=== PATIENT | female | born 1990 | race African-American/Black ===

== ENCOUNTER 2016-08-07 09:10 | Emergency (ER) | payer MEDICAID ==
[~2016-08-07] VITALS: Ht 157.5 cm; Wt 55.0 kg
[2016-08-07] MEDS ORDERED: KETOROLAC 60MG/2ML VIAL IM ONE (10:15)
[2016-08-07] MEDS ORDERED: ONDANSETRON 4MG ODT PO ONE (10:15)
[2016-08-07 10:24] LABS: MEAN CORPUSCULAR HEMOGLOBIN 26.4 pg (28.0-32.0); MEAN CORPUSCULAR HGB CONC 33.3 g/dL (31.0-37.0); MEAN CORPUSCULAR VOLUME 79.1 fL (81.0-99.0); PLATELET 427 x1000/uL (130-400); RED BLOOD CELL COUNT 4.55 mill/uL (4.2-5.4); RED CELL DISTRIBUTION WIDTH 14.6 % (11.6-14.6); WHITE BLOOD COUNT 7.3 x1000/uL (4.5-11.0)
[2016-08-07 10:30] LABS: CHLORIDE 102 mEq/L (98-107); INDEX HEMOLYSI 1 (1-3); INDEX ICTERIC 1 (1-4); INDEX LIPEMIC 1 (1-3)
[2016-08-07 10:39] LABS: ALANINE AMINOTRANSFERASE 24 IU/L (13-61); ALBUMIN 4.1 g/dL (3.4-5.0); ANION GAP 16; CALCIUM 9.3 mg/dL (8.5-10.1); CARBON DIOXIDE 26 mEq/L (21-32); UREA NITROGEN BLOOD 10 mg/dL (7-21); eGFR > 60 mL/min (>60)
[2016-08-07] MEDS ORDERED: LORAZEPAM 2MG/ML CPJ ONE (10:48)
[2016-08-07 10:53] LABS: CLARITY URINE CLOUDY (CLEAR); COLOR URINE YELLOW (YELLOW); GLUCOSE URINE NEGATIVE (NEGATIVE); KETONES URINE NEGATIVE (NEGATIVE); LEUKOCYTE ESTERASE URINE 3+ (NEGATIVE); NITRITE URINE NEGATIVE (NEGATIVE); OCCULT BLOOD URINE NEGATIVE (NEGATIVE); PH URINE >=9.0 (4.5-8.0); PROTEIN URINE 1+ (NEGATIVE); SPECIFIC GRAVITY URINE 1.014 (1.005-1.030); UROBILINOGEN URINE 0.2 E.U./dL (0.2-1.0)
[2016-08-07 11:13] LABS: SQUAMOUS EPITHELIAL CELL URINE 3+ /lpf (RARE/1+); WBC URINE 25-50 /hpf (0-2)
[2016-08-07 11:16] LABS: BACTERIA URINE 3+
[2016-08-07] MEDS ORDERED: LORAZEPAM 2MG/ML CPJ IM ONE (11:45)
[2016-08-07] MEDS ORDERED: VISCOUS LIDOCAINE 2% 15 ML UDC MM PRN (12:00)
[2016-08-07] MEDS ORDERED: MAGNESIUM/ALUMINUM HYDROXIDE/SIMETHICONE 30ML UDC PO ONE (12:00)
[2016-08-07] MEDS ORDERED: PHENOBARBITAL ELIXIR 30 MG/7.5ML UDC PO ONE (12:15)
[2016-08-07] MEDS ORDERED: MORPHINE SULFATE 2 MG/ML CPJ (NOT FOR IM USE) SQ ONE (13:00)
[2016-08-07] MEDS ORDERED: METOCLOPRAMIDE HCL 10MG/2ML VIAL IM ONE (13:00)
[2016-08-07 14:58] VITALS: BP 128/78
== END 2016-08-07 15:11 | disposition home or self-care (01) ==
LOC: ER 09:19
DX: N39.0 Urinary tract infection, site not specified (principal); F12.10 Cannabis abuse, uncomplicated; Z87.442 Personal history of urinary calculi; Z90.49 Acquired absence of other specified parts of digestive tract; Z88.6 Allergy status to analgesic agent
CPT/HCPCS: 36415; 80053; 81001; 81025; 85027; 96372; 99284; J1885; J2060; J2765; Q0162; Z7610

== ENCOUNTER 2016-12-28 12:34 | Emergency (ER) | payer MEDICAID ==
[~2016-12-28] VITALS: Ht 157.5 cm; Wt 70.0 kg
[~2016-12-28 12:34] MED LIST: COR6 PO; GUAI600T PO; LOSA50TA3 PO
[2016-12-28] MEDS ORDERED: SODIUM CHLORIDE 0.9% 1,000 ML IV ONE (14:14)
[2016-12-28] MEDS ORDERED: KETOROLAC 30MG/ML VIAL IV STA (14:14)
[2016-12-28] MEDS ORDERED: ONDANSETRON HCL 4MG/2ML VIAL IV STA (14:14)
[2016-12-28] MEDS ORDERED: FAMOTIDINE 20MG/2ML VIAL IV ONE (14:15)
[2016-12-28] MEDS ORDERED: IPRATROPIUM/ALBUTEROL 0.5-3(2.5)MG/3ML NEB HHN ONE (14:30)
[2016-12-28 14:34] LABS: GLUCOSE URINE NEGATIVE (NEGATIVE); KETONES URINE NEGATIVE (NEGATIVE); LEUKOCYTE ESTERASE URINE 3+ (NEGATIVE); NITRITE URINE NEGATIVE (NEGATIVE); OCCULT BLOOD URINE NEGATIVE (NEGATIVE); PH URINE 5.5 (4.5-8.0); PROTEIN URINE NEGATIVE (NEGATIVE); SPECIFIC GRAVITY URINE 1.018 (1.005-1.030); UROBILINOGEN URINE 0.2 E.U./dL (0.2-1.0)
[2016-12-28 14:44] LABS: CLARITY URINE HAZY (CLEAR); COLOR URINE YELLOW (YELLOW)
[2016-12-28] MEDS ORDERED: ONDANSETRON 4MG ODT PO ONE (14:45)
[2016-12-28] MEDS ORDERED: KETOROLAC 30MG/ML VIAL IM ONE (14:45)
[2016-12-28 14:49] LABS: BASOPHILS % 0.4 % (0.0-2.0); EOSINOPHILS % 0.3 % (0.0-5.0); HEMATOCRIT. 34.8 % (36.0-48.0); HEMOGLOBIN. 11.5 g/dL (12.0-16.0); LYMPHOCYTES % 12.1 % (20.0-50.0); MEAN CORPUSCULAR HEMOGLOBIN 26.9 pg (28.0-32.0); MEAN CORPUSCULAR VOLUME 81.7 fL (81.0-99.0); MEAN PLATELET VOLUME 8.4 fl (7.4-10.4); MONOCYTES % 2.8 % (2.0-8.0); NEUTROPHILS % 84.4 % (40.0-76.0); PLATELET 280 x1000/uL (130-400); RED BLOOD CELL COUNT 4.26 mill/uL (4.2-5.4); RED CELL DISTRIBUTION WIDTH 16.2 % (11.6-14.6)
[2016-12-28 14:51] LABS: CHLORIDE 102 mEq/L (98-107)
[2016-12-28 14:54] LABS: HCG SCREEN NEGATIVE
[2016-12-28 14:59] LABS: CARBON DIOXIDE 26 mEq/L (21-32)
[2016-12-28] MEDS ORDERED: MORPHINE SULFATE 2 MG/ML CPJ (NOT FOR IM USE) SQ ONE (15:45)
[2016-12-28 15:55] VITALS: BP 112/76
[2016-12-28] MEDS ORDERED: DIPHENHYDRAMINE 50MG/ML VIAL IM ONE (16:45)
== END 2016-12-28 17:49 | disposition home or self-care (01) ==
LOC: ER 14:12
DX: N20.0 Calculus of kidney (principal); N39.0 Urinary tract infection, site not specified; J45.909 Unspecified asthma, uncomplicated; I50.9 Heart failure, unspecified; F12.10 Cannabis abuse, uncomplicated; Z87.19 Personal history of other diseases of the digestive system
CPT/HCPCS: 36415; 74176; 80053; 81001; 83605; 83690; 84703; 85025; 93005; 94640; 96372; 99285; J1200; J1885; J2270; J7030; Q0162; Z7610; J2405; J3490; J7620

== ENCOUNTER 2017-01-10 13:39 | Emergency (ER) | payer MEDICAID ==
[~2017-01-10] VITALS: Ht 165.1 cm; Wt 68.0 kg
[2017-01-10] MEDS ORDERED: ONDANSETRON HCL 4MG/2ML VIAL IV STA (13:54)
[2017-01-10] MEDS ORDERED: MORPHINE SULFATE 4 MG/ML CPJ (NOT FOR IM USE) IV ONE ×2 (14:00→16:00)
[2017-01-10] MEDS ORDERED: DIPHENHYDRAMINE 50MG/ML VIAL IV ONE (14:00)
[2017-01-10] MEDS ORDERED: DIPHENHYDRAMINE 50MG/ML VIAL IM STA (14:17)
[2017-01-10] MEDS ORDERED: MORPHINE SULFATE 10 MG/ML CPJ IM ONE (14:30)
[2017-01-10 15:52] LABS: BASOPHILS % 0.5 % (0.0-2.0); HEMATOCRIT. 36.2 % (36.0-48.0); HEMOGLOBIN. 11.8 g/dL (12.0-16.0); LYMPHOCYTES % 8.2 % (20.0-50.0); MEAN CORPUSCULAR HEMOGLOBIN 26.5 pg (28.0-32.0); MEAN CORPUSCULAR VOLUME 81.3 fL (81.0-99.0); MEAN PLATELET VOLUME 8.3 fl (7.4-10.4); MONOCYTES % 2.5 % (2.0-8.0); NEUTROPHILS % 88.8 % (40.0-76.0); PLATELET 327 x1000/uL (130-400); RED BLOOD CELL COUNT 4.46 mill/uL (4.2-5.4)
[2017-01-10 15:59] LABS: CHLORIDE 105 mEq/L (98-107)
[2017-01-10 16:00] LABS: INR 1.1; PROTHROMBIN TIME 10.9 sec (9.4-11.6)
[2017-01-10] MEDS ORDERED: ONDANSETRON HCL 4MG/2ML VIAL IV ONE (16:00)
[2017-01-10 16:06] LABS: CARBON DIOXIDE 26 mEq/L (21-32)
[2017-01-10 16:10] LABS: HCG SCREEN NEGATIVE
[2017-01-10] MEDS ORDERED: ONDANSETRON HCL 4MG TABLET PO ONE (18:15)
[2017-01-10 18:55] VITALS: BP 119/79
== END 2017-01-10 18:57 | disposition home or self-care (01) ==
LOC: ER 13:39
DX: R10.84 Generalized abdominal pain (principal); K44.9 Diaphragmatic hernia without obstruction or gangrene; R11.2 Nausea with vomiting, unspecified; Z88.5 Allergy status to narcotic agent; Z90.49 Acquired absence of other specified parts of digestive tract
CPT/HCPCS: 36415; 74176; 80053; 83690; 84703; 85025; 85610; 93005; 96372; 96374; 96375; 96376; 99285; J1200; J2270; J2405; Q0162; Z7610

== ENCOUNTER 2017-01-11 07:53 | Emergency (ER) | payer MEDICAID ==
[~2017-01-11] VITALS: Ht 152.4 cm; Wt 61.0 kg
[2017-01-11] MEDS ORDERED: ONDANSETRON HCL 4MG/2ML VIAL IV STA (10:33)
[2017-01-11] MEDS ORDERED: KETOROLAC 30MG/ML VIAL IV STA (10:33)
[2017-01-11] MEDS ORDERED: DICYCLOMINE 10 MG/5 ML ORAL SYR PO STA (10:33)
[2017-01-11] MEDS ORDERED: FAMOTIDINE 20MG/2ML VIAL IV STA (10:33)
[2017-01-11] MEDS ORDERED: SODIUM CHLORIDE 0.9% 1,000 ML IV ONE (10:33)
[2017-01-11] MEDS ORDERED: DIPHENHYDRAMINE 50MG/ML VIAL IV ONE (12:30)
[2017-01-11 12:52] LABS: BASOPHILS % 0.5 % (0.0-2.0); HEMATOCRIT. 35.9 % (36.0-48.0); HEMOGLOBIN. 11.7 g/dL (12.0-16.0); LYMPHOCYTES % 7.2 % (20.0-50.0); MEAN CORPUSCULAR HEMOGLOBIN 26.3 pg (28.0-32.0); MEAN CORPUSCULAR VOLUME 80.7 fL (81.0-99.0); MEAN PLATELET VOLUME 8.5 fl (7.4-10.4); MONOCYTES % 3.8 % (2.0-8.0); NEUTROPHILS % 88.5 % (40.0-76.0); PLATELET 301 x1000/uL (130-400); RED BLOOD CELL COUNT 4.45 mill/uL (4.2-5.4); RED CELL DISTRIBUTION WIDTH 16.1 % (11.6-14.6)
[2017-01-11 13:03] LABS: HCG SCREEN NEGATIVE
[2017-01-11 13:08] LABS: CARBON DIOXIDE 31 mEq/L (21-32); CHLORIDE 96 mEq/L (98-107); ETHANOL BLOOD < 10 mg/dL
[2017-01-11 13:56] LABS: GLUCOSE URINE NEGATIVE (NEGATIVE); KETONES URINE 1+ (NEGATIVE); LEUKOCYTE ESTERASE URINE 1+ (NEGATIVE); NITRITE URINE NEGATIVE (NEGATIVE); OCCULT BLOOD URINE NEGATIVE (NEGATIVE); PH URINE 6.5 (4.5-8.0); PROTEIN URINE 1+ (NEGATIVE); SPECIFIC GRAVITY URINE 1.025 (1.005-1.030); UROBILINOGEN URINE 0.2 E.U./dL (0.2-1.0)
[2017-01-11 13:57] LABS: CLARITY URINE CLOUDY (CLEAR); COLOR URINE YELLOW (YELLOW)
[2017-01-11 14:22] LABS: *AMPHETAMINES SCREEN URINE NEGATIVE (NEGATIVE); *BARBITURATES SCREEN URINE NEGATIVE (NEGATIVE); *BENZODIAZEPINES SCREEN URINE NEGATIVE (NEGATIVE); *COCAINE SCREEN URINE NEGATIVE (NEGATIVE); METHADONE URINE SCREEN NEGATIVE (NEGATIVE); PHENCYCLIDINE URINE SCREEN NEGATIVE (NEGATIVE)
[2017-01-11 14:23] LABS: OPIATES URINE SCREEN PRESUMTIVE POSITIVE (NEGATIVE)
[2017-01-11 14:24] LABS: CANNABINOID URINE SCREEN PRESUMTIVE POSITIVE (NEGATIVE)
[2017-01-11] MEDS ORDERED: MAGNESIUM/ALUMINUM HYDROXIDE/SIMETHICONE 30ML UDC PO STA (14:31)
[2017-01-11] MEDS ORDERED: VISCOUS LIDOCAINE 2% 15 ML UDC PO STA (14:31)
[2017-01-11 15:10] VITALS: BP 116/83
== END 2017-01-11 15:42 | disposition home or self-care (01) ==
LOC: ER 08:43
DX: R10.13 Epigastric pain (principal); R11.2 Nausea with vomiting, unspecified; Z88.5 Allergy status to narcotic agent
CPT/HCPCS: 36415; 80053; 80305; 81001; 83690; 84703; 85025; 96361; 96374; 96375; 99285; G0482; J1200; J1885; J2405; J3490; J7030; Z7610

== ENCOUNTER 2017-02-25 12:05 | Inpatient (IN) | payer MEDICAID ==
[~2017-02-25] VITALS: Ht 152.4 cm; Wt 59.0 kg
[~2017-02-25 12:05] MED LIST changes: -GUAI600T PO; +GUAI600T44 PO
[2017-02-25] MEDS ORDERED: ONDANSETRON HCL 4MG/2ML VIAL IV STA (12:07)
[2017-02-25] MEDS ORDERED: SODIUM CHLORIDE 0.9% 1,000 ML IV ONE ×2 (12:07→14:15)
[2017-02-25] MEDS ORDERED: FAMOTIDINE 20MG/2ML VIAL IV ONE (12:15)
[2017-02-25 12:50] LABS: CHLORIDE 98 mEq/L (98-107)
[2017-02-25 12:52] LABS: PROTHROMBIN TIME 10.6 sec (9.4-11.6)
[2017-02-25 12:58] LABS: CARBON DIOXIDE 29 mEq/L (21-32)
[2017-02-25 13:01] LABS: BASOPHILS % 0.4 % (0.0-2.0); EOSINOPHILS % 0.3 % (0.0-5.0); HEMATOCRIT. 35.1 % (36.0-48.0); HEMOGLOBIN. 11.4 g/dL (12.0-16.0); LYMPHOCYTES % 13.7 % (20.0-50.0); MEAN CORPUSCULAR HEMOGLOBIN 26.7 pg (28.0-32.0); MONOCYTES % 2.6 % (2.0-8.0); PLATELET 313 x1000/uL (130-400); RED BLOOD CELL COUNT 4.28 mill/uL (4.2-5.4); RED CELL DISTRIBUTION WIDTH 16.1 % (11.6-14.6)
[2017-02-25] MEDS ORDERED: FENTANYL CITRATE/PF 50MCG/ML 2ML VIAL IV ONE (14:15)
[2017-02-25] MEDS ORDERED: IOHEXOL-300 100 ML BOTTLE ONE (14:20)
[2017-02-25] MEDS ORDERED: SODIUM CHLORIDE 0.9% 10ML VIAL ONE (14:20)
[2017-02-25 16:12] LABS: HCG SCREEN NEGATIVE
[2017-02-25] MEDS ORDERED: DIPHENHYDRAMINE 50MG/ML VIAL IV ONE (17:30)
[2017-02-25] MEDS ORDERED: HYDROMORPHONE HCL/PF 2MG/ML CPJ IV ONE (17:30)
[2017-02-25] MEDS ORDERED: METOCLOPRAMIDE HCL 10MG/2ML VIAL IV ONE (17:30)
[2017-02-25] MEDS ORDERED: SODIUM CHLORIDE 0.9% 500 ML IV ONE ×2 (17:30→19:15)
[2017-02-25 17:37] LABS: CLARITY URINE CLOUDY (CLEAR); COLOR URINE YELLOW (YELLOW); GLUCOSE URINE NEGATIVE (NEGATIVE); KETONES URINE NEGATIVE (NEGATIVE); LEUKOCYTE ESTERASE URINE 1+ (NEGATIVE); NITRITE URINE NEGATIVE (NEGATIVE); OCCULT BLOOD URINE NEGATIVE (NEGATIVE); PH URINE >=9.0 (4.5-8.0); PROTEIN URINE TRACE (NEGATIVE); SPECIFIC GRAVITY URINE 1.015 (1.005-1.030); UROBILINOGEN URINE 0.2 E.U./dL (0.2-1.0)
[2017-02-25] MEDS ORDERED: CEFTRIAXONE 1 G PREMIX 50 ML IV ONE (19:00)
[2017-02-25] MEDS ORDERED: MORPHINE SULFATE 4 MG/ML CPJ (NOT FOR IM USE) IV ONE (19:15)
[2017-02-25 20:30] VITALS: BP 140/105
[2017-02-25] MEDS ORDERED: GUAIFENESIN 200MG/10ML SUGAR FREE UDC PO PRN (22:00)
[2017-02-25] MEDS: CARVEDILOL 6.25 MG TABLET PO SCH ×2 (22:00→22:32)
[2017-02-25] MEDS ORDERED: ACETAMINOPHEN 325MG TABLET PO PRN (22:00)
[2017-02-25] MEDS ORDERED: HYDROCODONE/ACETAMINOPHEN 5/325MG TABLET PO PRN (22:15)
[2017-02-25] MEDS: SODIUM CHLORIDE 0.9% INJ 3ML FLUSH IVF SCH (22:31)
[2017-02-25] MEDS: ONDANSETRON HCL 4MG/2ML VIAL IV PRN (22:31)
[2017-02-25] MEDS: HYDROMORPHONE HCL/PF 2MG/ML CPJ IV PRN (23:16)
[2017-02-26] VITALS (7 sets, daily range): BP systolic 116–144; BP diastolic 60–101
[2017-02-26] MEDS: HYDROMORPHONE HCL/PF 2MG/ML CPJ IV PRN ×4 (03:35→20:27)
[2017-02-26] MEDS: DEXT 5%/0.9% NACL 1,000 ML IV SCH ×2 (06:09→14:41)
[2017-02-26] MEDS: SODIUM CHLORIDE 0.9% INJ 3ML FLUSH IVF SCH ×3 (06:09→21:47)
[2017-02-26 07:10] LABS: BASOPHILS % 0.3 % (0.0-2.0); EOSINOPHILS % 0.3 % (0.0-5.0); HEMATOCRIT. 33.9 % (36.0-48.0); HEMOGLOBIN. 11.2 g/dL (12.0-16.0); LYMPHOCYTES % 21.6 % (20.0-50.0); MEAN CORPUSCULAR HEMOGLOBIN 27.1 pg (28.0-32.0); MEAN CORPUSCULAR VOLUME 82.4 fL (81.0-99.0); MEAN PLATELET VOLUME 8.1 fl (7.4-10.4); MONOCYTES % 5.5 % (2.0-8.0); NEUTROPHILS % 72.3 % (40.0-76.0); PLATELET 292 x1000/uL (130-400); RED BLOOD CELL COUNT 4.11 mill/uL (4.2-5.4); RED CELL DISTRIBUTION WIDTH 15.9 % (11.6-14.6)
[2017-02-26 07:26] LABS: CARBON DIOXIDE 27 mEq/L (21-32); CHLORIDE 99 mEq/L (98-107)
[2017-02-26] MEDS: PANTOPRAZOLE SODIUM 40 MG/VIAL IV SCH (09:04)
[2017-02-26] MEDS: ONDANSETRON HCL 4MG/2ML VIAL IV PRN (09:05)
[2017-02-26] MEDS: GUAIFENESIN 600MG ER TABLET PO SCH ×2 (09:05→20:25)
[2017-02-26] MEDS: LOSARTAN POTASSIUM 50 MG TABLET PO SCH (09:06)
[2017-02-26] MEDS: CARVEDILOL 6.25 MG TABLET PO SCH ×2 (09:07→20:33)
[2017-02-26] MEDS: DIPHENHYDRAMINE 50MG/ML VIAL IV PRN ×3 (10:53→21:47)
[2017-02-26] MEDS ORDERED: SORBITOL 70% SOLN 30ML PO NR ×2 (15:30→20:00)
[2017-02-26] MEDS: SENNOSIDES/DOCUSATE SOD 8.6/50MG TABLET PO SCH (18:11)
[2017-02-26] MEDS: CEFTRIAXONE 1 G PREMIX 50 ML IV SCH (18:11)
[2017-02-27] MEDS: DEXT 5%/0.9% NACL 1,000 ML IV SCH ×2 (00:11→10:15)
[2017-02-27] MEDS: HYDROMORPHONE HCL/PF 2MG/ML CPJ IV PRN ×3 (00:12→16:19)
[2017-02-27] MEDS: ONDANSETRON HCL 4MG/2ML VIAL IV PRN (00:32)
[2017-02-27] MEDS: DIPHENHYDRAMINE 50MG/ML VIAL IV PRN ×2 (02:52→13:20)
[2017-02-27 05:15] VITALS: BP 102/81
[2017-02-27] MEDS: SODIUM CHLORIDE 0.9% INJ 3ML FLUSH IVF SCH ×2 (05:49→17:37)
[2017-02-27 08:04] VITALS: BP 114/77
[2017-02-27] MEDS: PANTOPRAZOLE SODIUM 40 MG/VIAL IV SCH (09:24)
[2017-02-27] MEDS: SENNOSIDES/DOCUSATE SOD 8.6/50MG TABLET PO SCH ×2 (09:26→17:50)
[2017-02-27] MEDS: CARVEDILOL 6.25 MG TABLET PO SCH (09:27)
[2017-02-27] MEDS: GUAIFENESIN 600MG ER TABLET PO SCH (09:27)
[2017-02-27] MEDS: LOSARTAN POTASSIUM 50 MG TABLET PO SCH (09:27)
[2017-02-27 12:00] VITALS: BP 125/89
[2017-02-27 16:00] VITALS: BP 139/97
[2017-02-27] MEDS: CEFTRIAXONE 1 G PREMIX 50 ML IV SCH (17:50)
[2017-02-27 19:29] VITALS: BP 135/96
== END 2017-02-27 21:15 | disposition home or self-care (01) | DRG 720 ==
LOC: ER 12:35 → ENRESERV 16:24 → 6WST 19:11 → EDBEDREQ 19:12
PROVIDERS: ADMIT Internal Medicine; ATTEND Internal Medicine
DX: A41.9 Sepsis, unspecified organism (principal); G93.41 Metabolic encephalopathy; I42.9 Cardiomyopathy, unspecified; I11.0 Hypertensive heart disease with heart failure; I50.22 Chronic systolic (congestive) heart failure; K76.0 Fatty (change of) liver, not elsewhere classified; N39.0 Urinary tract infection, site not specified; J45.909 Unspecified asthma, uncomplicated; K20.9 Esophagitis, unspecified; K44.9 Diaphragmatic hernia without obstruction or gangrene; K52.9 Noninfective gastroenteritis and colitis, unspecified; F12.10 Cannabis abuse, uncomplicated; K31.7 Polyp of stomach and duodenum; Z87.01 Personal history of pneumonia (recurrent); Z90.49 Acquired absence of other specified parts of digestive tract; Z88.6 Allergy status to analgesic agent; Z79.899 Other long term (current) drug therapy
CPT/HCPCS: 36415; 71010; 74000; 74177; 80048; 80053; 81001; 81025; 82962; 83605; 83690; 84703; 85025; 85610; 87040; 87086; 93005; 93970; 96361; 96365; 96375; 99285; A4216; C1893; C9113; J0696; J1170; J1200; J2270; J2405; J2765; J3010; J3490; J7030; J7040; J7042; Q9967

== ENCOUNTER 2017-03-25 05:35 | Inpatient (IN) | payer MEDICAID ==
[~2017-03-25] VITALS: Ht 152.4 cm; Wt 58.5 kg
[2017-03-25] MEDS: KETOROLAC 30MG/ML VIAL IV STA ×2 (06:36→09:30)
[2017-03-25] MEDS ORDERED: FAMOTIDINE 20MG/2ML VIAL IV STA (06:36)
[2017-03-25] MEDS ORDERED: SODIUM CHLORIDE 0.9% 1,000 ML IV ONE (06:36)
[2017-03-25] MEDS ORDERED: MORPHINE SULFATE 4 MG/ML CPJ (NOT FOR IM USE) IV ONE (07:00)
[2017-03-25] MEDS ORDERED: DIPHENHYDRAMINE 50MG/ML VIAL IV ONE (07:00)
[2017-03-25 07:06] LABS: HEMATOCRIT. 36.5 % (36.0-48.0); HEMOGLOBIN. 12.4 g/dL (12.0-16.0); MEAN CORPUSCULAR VOLUME 82.9 fL (81.0-99.0); MEAN PLATELET VOLUME 8.4 fl (7.4-10.4); PLATELET 292 x1000/uL (130-400); RED BLOOD CELL COUNT 4.41 mill/uL (4.2-5.4); RED CELL DISTRIBUTION WIDTH 15.8 % (11.6-14.6)
[2017-03-25 07:13] LABS: CHLORIDE 100 mEq/L (98-107)
[2017-03-25 07:15] LABS: PROTHROMBIN TIME 10.6 sec (9.4-11.6)
[2017-03-25] MEDS ORDERED: ONDANSETRON HCL 4MG/2ML VIAL IV ONE ×2 (07:15→09:30)
[2017-03-25 07:21] LABS: CARBON DIOXIDE 27 mEq/L (21-32); ETHANOL BLOOD < 10 mg/dL; HCG SCREEN NEGATIVE
[2017-03-25 07:28] LABS: CLARITY URINE CLOUDY (CLEAR); COLOR URINE YELLOW (YELLOW); GLUCOSE URINE TRACE (NEGATIVE); KETONES URINE 3+ (NEGATIVE); LEUKOCYTE ESTERASE URINE 1+ (NEGATIVE); NITRITE URINE NEGATIVE (NEGATIVE); OCCULT BLOOD URINE NEGATIVE (NEGATIVE); PH URINE >=9.0 (4.5-8.0); PROTEIN URINE 1+ (NEGATIVE); SPECIFIC GRAVITY URINE 1.023 (1.005-1.030); UROBILINOGEN URINE 0.2 E.U./dL (0.2-1.0)
[2017-03-25 07:46] LABS: *AMPHETAMINES SCREEN URINE NEGATIVE (NEGATIVE); *BARBITURATES SCREEN URINE NEGATIVE (NEGATIVE); *BENZODIAZEPINES SCREEN URINE NEGATIVE (NEGATIVE); *COCAINE SCREEN URINE NEGATIVE (NEGATIVE); METHADONE URINE SCREEN NEGATIVE (NEGATIVE); PHENCYCLIDINE URINE SCREEN NEGATIVE (NEGATIVE)
[2017-03-25 07:51] LABS: CANNABINOID URINE SCREEN PRESUMTIVE POSITIVE (NEGATIVE); OPIATES URINE SCREEN PRESUMTIVE POSITIVE (NEGATIVE)
[2017-03-25] MEDS ORDERED: SODIUM CHLORIDE 0.9% 1000ML BAG (SEPSIS BOLUS) IV ONE (08:00)
[2017-03-25 08:08] LABS: PLATELET ESTIMATE NORMAL
[2017-03-25 12:00] VITALS: BP 133/91
[2017-03-25] MEDS ORDERED: ONDANSETRON HCL 4MG/2ML VIAL IV PRN (12:45)
[2017-03-25] MEDS ORDERED: DOCUSATE SODIUM 100MG CAPSULE PO PRN (12:45)
[2017-03-25] MEDS ORDERED: HYDROCODONE/ACETAMINOPHEN 5/325MG TABLET PO PRN (12:45)
[2017-03-25] MEDS ORDERED: IPRATROPIUM/ALBUTEROL 0.5-3(2.5)MG/3ML NEB INH PRN (12:45)
[2017-03-25] MEDS ORDERED: CLONIDINE 0.1MG TABLET PO PRN ×2 (12:45)
[2017-03-25] MEDS ORDERED: MAGNESIUM/ALUMINUM HYDROXIDE/SIMETHICONE 30ML UDC PO PRN (12:45)
[2017-03-25] MEDS ORDERED: ACETAMINOPHEN 325MG TABLET PO PRN (12:45)
[2017-03-25] MEDS: HYDROCODONE/ACETAMINOPHEN 5/325MG TABLET PO PRN ×3 (13:13→22:55)
[2017-03-25] MEDS: PANTOPRAZOLE 40MG DR TABLET PO SCH (13:13)
[2017-03-25] MEDS: DIPHENHYDRAMINE 50MG/ML VIAL IV PRN ×3 (13:13→22:54)
[2017-03-25] MEDS: ENOXAPARIN 40MG/0.4ML SYR SUBCUT SCH (13:14)
[2017-03-25 13:30] VITALS: BP 113/77
[2017-03-25] MEDS ORDERED: LOPERAMIDE 2 MG/10 ML UDC PO NR (15:15)
[2017-03-25] MEDS: SODIUM CHLORIDE 0.9% 1,000 ML IV SCH (15:36)
[2017-03-25] MEDS: FUROSEMIDE 40MG TABLET PO SCH (15:37)
[2017-03-25 15:48] LABS: CARBON DIOXIDE 25 mEq/L (21-32); CHLORIDE 103 mEq/L (98-107)
[2017-03-25 15:53] LABS: CREATINE KINASE 141 IU/L (26-192); CREATINE KINASE MB FRACTION 0.9 ng/mL (0.5-3.6); TROPONIN I < 0.02 ng/mL (0.00-0.04)
[2017-03-25 16:00] VITALS: BP 96/66
[2017-03-25] MEDS: ONDANSETRON HCL 4MG/2ML VIAL IV PRN (18:08)
[2017-03-25 19:51] LABS: CLARITY URINE CLEAR (CLEAR); COLOR URINE YELLOW (YELLOW); SPECIFIC GRAVITY URINE 1.007 (1.005-1.030)
[2017-03-25 19:52] LABS: GLUCOSE URINE NEGATIVE (NEGATIVE); KETONES URINE NEGATIVE (NEGATIVE); LEUKOCYTE ESTERASE URINE NEGATIVE (NEGATIVE); NITRITE URINE NEGATIVE (NEGATIVE); OCCULT BLOOD URINE NEGATIVE (NEGATIVE); PROTEIN URINE NEGATIVE (NEGATIVE); UROBILINOGEN URINE 0.2 E.U./dL (0.2-1.0)
[2017-03-25 20:00] VITALS: BP 122/89
[2017-03-25] MEDS: CARVEDILOL 3.125 MG TABLET PO SCH (21:00)
[2017-03-25] MEDS ORDERED: ZOLPIDEM TARTRATE 5MG TABLET PO PRN (21:30)
[2017-03-25 23:35] LABS: CREATINE KINASE 151 IU/L (26-192); CREATINE KINASE MB FRACTION 0.7 ng/mL (0.5-3.6); TROPONIN I < 0.02 ng/mL (0.00-0.04)
[2017-03-26] VITALS: BP 108/74
[2017-03-26] MEDS: SODIUM CHLORIDE 0.9% 1,000 ML IV SCH ×2 (01:53→12:41)
[2017-03-26 04:00] VITALS: BP 99/60
[2017-03-26] MEDS: HYDROCODONE/ACETAMINOPHEN 5/325MG TABLET PO PRN ×2 (05:31→10:40)
[2017-03-26] MEDS: ONDANSETRON HCL 4MG/2ML VIAL IV PRN ×2 (05:31→12:10)
[2017-03-26] MEDS: DIPHENHYDRAMINE 50MG/ML VIAL IV PRN ×3 (05:32→12:10)
[2017-03-26] MEDS: PANTOPRAZOLE 40MG DR TABLET PO SCH (06:13)
[2017-03-26 06:19] LABS: BASOPHILS % 0.6 % (0.0-2.0); EOSINOPHILS % 0.6 % (0.0-5.0); HEMATOCRIT. 37.9 % (36.0-48.0); HEMOGLOBIN. 12.2 g/dL (12.0-16.0); LYMPHOCYTES % 27.9 % (20.0-50.0); MEAN CORPUSCULAR HEMOGLOBIN 27.5 pg (28.0-32.0); MEAN CORPUSCULAR VOLUME 85.3 fL (81.0-99.0); MEAN PLATELET VOLUME 8.5 fl (7.4-10.4); MONOCYTES % 6.1 % (2.0-8.0); NEUTROPHILS % 64.8 % (40.0-76.0); PLATELET 225 x1000/uL (130-400); RED BLOOD CELL COUNT 4.44 mill/uL (4.2-5.4); RED CELL DISTRIBUTION WIDTH 16.5 % (11.6-14.6)
[2017-03-26 07:10] LABS: AMYLASE 65 IU/L (25-115); CARBON DIOXIDE 26 mEq/L (21-32); CHLORIDE 106 mEq/L (98-107); HDL CHOLESTEROL 62 mg/dL (40-59); LDL CHOLESTEROL 109 mg/dL (5-100); TROPONIN I < 0.02 ng/mL (0.00-0.04)
[2017-03-26] MEDS ORDERED: POTASSIUM CHLORIDE 20MEQ TABLET SR PO NR ×2 (08:00→12:00)
[2017-03-26] MEDS: POTASSIUM CHLORIDE 10MEQ TABLET SR PO SCH (08:17)
[2017-03-26] MEDS: CARVEDILOL 3.125 MG TABLET PO SCH ×2 (08:19→20:10)
[2017-03-26] MEDS: FUROSEMIDE 40MG TABLET PO SCH (08:19)
[2017-03-26] MEDS: ENOXAPARIN 40MG/0.4ML SYR SUBCUT SCH (08:20)
[2017-03-26] MEDS ORDERED: LOPERAMIDE 2 MG/10 ML UDC PO PRN (09:00)
[2017-03-26 12:00] VITALS: BP 110/80
[2017-03-26] MEDS ORDERED: MORPHINE SULFATE 2 MG/ML CPJ (NOT FOR IM USE) IV PRN (12:00)
[2017-03-26] MEDS ORDERED: MORPHINE SULFATE 4 MG/ML CPJ (NOT FOR IM USE) IV PRN (12:00)
[2017-03-26] MEDS ORDERED: MORPHINE SULFATE 4 MG/ML CPJ (NOT FOR IM USE) IV NR (12:00)
[2017-03-26] MEDS ORDERED: DIATR MEGLU/DIATRIZOATE SOLN 30ML PO NR (12:45)
[2017-03-26] MEDS: HYDROMORPHONE HCL/PF 2MG/ML CPJ IV PRN ×2 (15:23→20:20)
[2017-03-26] MEDS ORDERED: IOHEXOL-300 100 ML BOTTLE ONE (15:55)
[2017-03-26 16:00] VITALS: BP 114/87
[2017-03-26 19:50] VITALS: BP 129/80
[2017-03-27] VITALS: BP 127/71
[2017-03-27] MEDS: DIPHENHYDRAMINE 50MG/ML VIAL IV PRN ×5 (01:45→20:59)
[2017-03-27] MEDS: HYDROMORPHONE HCL/PF 2MG/ML CPJ IV PRN ×5 (01:45→20:53)
[2017-03-27 04:00] VITALS: BP 117/78
[2017-03-27] MEDS: SODIUM CHLORIDE 0.9% 1,000 ML IV SCH ×2 (04:09→18:45)
[2017-03-27] MEDS: PANTOPRAZOLE 40MG DR TABLET PO SCH (06:09)
[2017-03-27 06:59] LABS: BASOPHILS % 0.4 % (0.0-2.0); EOSINOPHILS % 1.9 % (0.0-5.0); HEMATOCRIT. 34.6 % (36.0-48.0); HEMOGLOBIN. 11.6 g/dL (12.0-16.0); LYMPHOCYTES % 37.5 % (20.0-50.0); MEAN CORPUSCULAR HEMOGLOBIN 27.9 pg (28.0-32.0); MEAN CORPUSCULAR VOLUME 83.4 fL (81.0-99.0); MEAN PLATELET VOLUME 8.3 fl (7.4-10.4); MONOCYTES % 5.1 % (2.0-8.0); NEUTROPHILS % 55.1 % (40.0-76.0); PLATELET 236 x1000/uL (130-400); RED BLOOD CELL COUNT 4.14 mill/uL (4.2-5.4); RED CELL DISTRIBUTION WIDTH 15.6 % (11.6-14.6)
[2017-03-27 07:44] LABS: CHLORIDE 105 mEq/L (98-107)
[2017-03-27 08:00] VITALS: BP 112/78
[2017-03-27] MEDS: POTASSIUM CHLORIDE 10MEQ TABLET SR PO SCH (08:05)
[2017-03-27] MEDS: FUROSEMIDE 40MG TABLET PO SCH (08:05)
[2017-03-27] MEDS: ENOXAPARIN 40MG/0.4ML SYR SUBCUT SCH (08:05)
[2017-03-27] MEDS: CARVEDILOL 3.125 MG TABLET PO SCH ×2 (08:05→20:30)
[2017-03-27 08:22] LABS: CARBON DIOXIDE 23 mEq/L (21-32)
[2017-03-27] MEDS ORDERED: POTASSIUM CHLORIDE INJ 40 MEQ in DEXT 5% WATER 500 ML IV SCH (11:50)
[2017-03-27 12:00] VITALS: BP 128/81
[2017-03-27] MEDS: ONDANSETRON HCL 4MG/2ML VIAL IV PRN (12:15)
[2017-03-27] MEDS ORDERED: KCL 20MEQ/100ML PREMIX 100 ML IV NR (12:30)
[2017-03-27] MEDS: FAMOTIDINE 20MG/2ML VIAL IV SCH ×2 (12:43→20:30)
[2017-03-27 16:00] VITALS: BP 111/81
[2017-03-27 20:00] VITALS: BP 122/80
[2017-03-28] VITALS (7 sets, daily range): BP systolic 102–131; BP diastolic 69–91
[2017-03-28] MEDS: HYDROMORPHONE HCL/PF 2MG/ML CPJ IV PRN ×6 (00:21→21:47)
[2017-03-28] MEDS: DIPHENHYDRAMINE 50MG/ML VIAL IV PRN ×6 (00:22→21:47)
[2017-03-28 06:24] LABS: BASOPHILS % 0.6 % (0.0-2.0); EOSINOPHILS % 5.9 % (0.0-5.0); HEMATOCRIT. 36.1 % (36.0-48.0); HEMOGLOBIN. 12.2 g/dL (12.0-16.0); LYMPHOCYTES % 43.1 % (20.0-50.0); MEAN CORPUSCULAR HEMOGLOBIN 27.7 pg (28.0-32.0); MEAN CORPUSCULAR VOLUME 82.1 fL (81.0-99.0); MEAN PLATELET VOLUME 8.3 fl (7.4-10.4); MONOCYTES % 6.4 % (2.0-8.0); PLATELET 264 x1000/uL (130-400); RED BLOOD CELL COUNT 4.39 mill/uL (4.2-5.4); RED CELL DISTRIBUTION WIDTH 15.3 % (11.6-14.6)
[2017-03-28] MEDS: SODIUM CHLORIDE 0.9% 1,000 ML IV SCH ×2 (06:47→12:16)
[2017-03-28 07:11] LABS: CARBON DIOXIDE 25 mEq/L (21-32); CHLORIDE 101 mEq/L (98-107)
[2017-03-28] MEDS: POTASSIUM CHLORIDE 10MEQ TABLET SR PO SCH (08:36)
[2017-03-28] MEDS: FUROSEMIDE 40MG TABLET PO SCH (08:36)
[2017-03-28] MEDS: ENOXAPARIN 40MG/0.4ML SYR SUBCUT SCH (08:36)
[2017-03-28] MEDS: FAMOTIDINE 20MG/2ML VIAL IV SCH ×2 (08:36→21:47)
[2017-03-28] MEDS: CARVEDILOL 3.125 MG TABLET PO SCH ×2 (08:37→21:46)
[2017-03-29] VITALS (8 sets, daily range): BP systolic 100–118; BP diastolic 61–85
[2017-03-29] MEDS: SODIUM CHLORIDE 0.9% 1,000 ML IV SCH ×2 (01:16→20:40)
[2017-03-29] MEDS: HYDROMORPHONE HCL/PF 2MG/ML CPJ IV PRN ×5 (01:51→22:15)
[2017-03-29] MEDS: DIPHENHYDRAMINE 50MG/ML VIAL IV PRN ×5 (01:51→22:15)
[2017-03-29 06:31] LABS: BASOPHILS % 0.7 % (0.0-2.0); EOSINOPHILS % 4.4 % (0.0-5.0); HEMATOCRIT. 34.6 % (36.0-48.0); HEMOGLOBIN. 11.8 g/dL (12.0-16.0); LYMPHOCYTES % 41.6 % (20.0-50.0); MEAN CORPUSCULAR HEMOGLOBIN 28.3 pg (28.0-32.0); MEAN CORPUSCULAR VOLUME 82.6 fL (81.0-99.0); MONOCYTES % 8.4 % (2.0-8.0); NEUTROPHILS % 44.9 % (40.0-76.0); PLATELET 230 x1000/uL (130-400); RED BLOOD CELL COUNT 4.19 mill/uL (4.2-5.4); RED CELL DISTRIBUTION WIDTH 15.6 % (11.6-14.6)
[2017-03-29 07:00] LABS: CARBON DIOXIDE 29 mEq/L (21-32); CHLORIDE 100 mEq/L (98-107)
[2017-03-29] MEDS: FAMOTIDINE 20MG/2ML VIAL IV SCH ×2 (08:56→20:29)
[2017-03-29] MEDS: POTASSIUM CHLORIDE 10MEQ TABLET SR PO SCH (08:57)
[2017-03-29] MEDS: FUROSEMIDE 40MG TABLET PO SCH (08:57)
[2017-03-29] MEDS: CARVEDILOL 3.125 MG TABLET PO SCH ×2 (08:57→20:48)
[2017-03-29] MEDS: ENOXAPARIN 40MG/0.4ML SYR SUBCUT SCH (08:57)
[2017-03-29] MEDS ORDERED: POTASSIUM CHLORIDE 20MEQ TABLET SR PO NR (12:00)
[2017-03-29] MEDS: LOSARTAN POTASSIUM 25 MG TABLET PO SCH (12:42)
[2017-03-29] MEDS ORDERED: LACTULOSE 20G/30ML UDC PO NR (17:00)
[2017-03-29] MEDS: SENNOSIDES/DOCUSATE SOD 8.6/50MG TABLET PO SCH (17:31)
[2017-03-30] VITALS (7 sets, daily range): BP systolic 94–107; BP diastolic 58–76
[2017-03-30] MEDS: DIPHENHYDRAMINE 50MG/ML VIAL IV PRN ×5 (03:23→22:11)
[2017-03-30] MEDS: HYDROMORPHONE HCL/PF 2MG/ML CPJ IV PRN ×5 (03:23→22:11)
[2017-03-30 07:49] LABS: BASOPHILS % 0.5 % (0.0-2.0); EOSINOPHILS % 3.1 % (0.0-5.0); HEMATOCRIT. 40.7 % (36.0-48.0); HEMOGLOBIN. 13.8 g/dL (12.0-16.0); LYMPHOCYTES % 36.4 % (20.0-50.0); MEAN CORPUSCULAR HEMOGLOBIN 28.2 pg (28.0-32.0); MEAN CORPUSCULAR VOLUME 83.5 fL (81.0-99.0); MONOCYTES % 8.2 % (2.0-8.0); NEUTROPHILS % 51.8 % (40.0-76.0); RED BLOOD CELL COUNT 4.87 mill/uL (4.2-5.4); RED CELL DISTRIBUTION WIDTH 15.1 % (11.6-14.6)
[2017-03-30] MEDS: FAMOTIDINE 20MG/2ML VIAL IV SCH ×2 (08:11→21:07)
[2017-03-30] MEDS: SENNOSIDES/DOCUSATE SOD 8.6/50MG TABLET PO SCH (08:12)
[2017-03-30] MEDS: ENOXAPARIN 40MG/0.4ML SYR SUBCUT SCH (08:12)
[2017-03-30] MEDS: FUROSEMIDE 40MG TABLET PO SCH (08:13)
[2017-03-30] MEDS: CARVEDILOL 3.125 MG TABLET PO SCH ×3 (08:13→21:00)
[2017-03-30] MEDS: POTASSIUM CHLORIDE 10MEQ TABLET SR PO SCH (08:13)
[2017-03-30] MEDS: LOSARTAN POTASSIUM 25 MG TABLET PO SCH (08:14)
[2017-03-30 08:22] LABS: CHLORIDE 101 mEq/L (98-107)
[2017-03-30 08:53] LABS: CARBON DIOXIDE 25 mEq/L (21-32)
[2017-03-30 10:16] LABS: MEAN PLATELET VOLUME 9.2 fl (7.4-10.4); PLATELET 247 x1000/uL (130-400)
[2017-03-30] MEDS: SODIUM CHLORIDE 0.9% 1,000 ML IV SCH ×2 (12:35→21:25)
[2017-03-31] VITALS: BP 102/72
[2017-03-31 02:09] VITALS: BP 108/77
[2017-03-31] MEDS: HYDROMORPHONE HCL/PF 2MG/ML CPJ IV PRN ×2 (02:16→09:44)
[2017-03-31] MEDS: DIPHENHYDRAMINE 50MG/ML VIAL IV PRN ×2 (02:16→09:45)
[2017-03-31 04:00] VITALS: BP 94/63
[2017-03-31] MEDS: FAMOTIDINE 20MG/2ML VIAL IV SCH (07:58)
[2017-03-31] MEDS: FUROSEMIDE 40MG TABLET PO SCH (07:58)
[2017-03-31] MEDS: CARVEDILOL 3.125 MG TABLET PO SCH (07:59)
[2017-03-31] MEDS: ENOXAPARIN 40MG/0.4ML SYR SUBCUT SCH (08:00)
[2017-03-31] MEDS: SENNOSIDES/DOCUSATE SOD 8.6/50MG TABLET PO SCH (08:00)
[2017-03-31] MEDS: LOSARTAN POTASSIUM 25 MG TABLET PO SCH (08:00)
[2017-03-31] MEDS: POTASSIUM CHLORIDE 10MEQ TABLET SR PO SCH (08:00)
[2017-03-31 09:00] VITALS: BP 96/68
[2017-03-31 09:30] VITALS: BP 113/80
[2017-03-31 12:10] VITALS: BP 113/80
== END 2017-03-31 13:25 | disposition home or self-care (01) | DRG 247 ==
LOC: ER 05:54 → 8WST 09:25 → ENRESERV 09:53
PROVIDERS: ADMIT Internal Medicine; ATTEND Internal Medicine
DX: K56.600 Partial intestinal obstruction, unspecified as to cause (principal); E87.2 Acidosis; I42.0 Dilated cardiomyopathy; I11.0 Hypertensive heart disease with heart failure; R65.10 Systemic inflammatory response syndrome (SIRS) of non-infectious origin without acute organ dysfunction; I50.22 Chronic systolic (congestive) heart failure; K86.1 Other chronic pancreatitis; K76.0 Fatty (change of) liver, not elsewhere classified; E87.6 Hypokalemia; J45.909 Unspecified asthma, uncomplicated; E87.1 Hypo-osmolality and hyponatremia; N20.0 Calculus of kidney; Z79.899 Other long term (current) drug therapy; Z87.891 Personal history of nicotine dependence; Z90.49 Acquired absence of other specified parts of digestive tract; Z88.6 Allergy status to analgesic agent; Z72.89 Other problems related to lifestyle; Z87.01 Personal history of pneumonia (recurrent); G90.8 Other disorders of autonomic nervous system
CPT/HCPCS: 36415; 71010; 74000; 74176; 74177; 76705; 80048; 80053; 80061; 80305; 81001; 81003; 82150; 82270; 82550; 82553; 83605; 83690; 83735; 83880; 84443; 84484; 84703; 85025; 85610; 86850; 86900; 86920; 87015; 87040; 87045; 87086; 87427; 87449; 89055; 93005; 93306; 93970; 96361; 96374; 96375; 99285; C1893; G0482; J1170; J1200; J1650; J1885; J2270; J2405; J3480; J3490; J7030; J7060; Q9963; Q9967

== ENCOUNTER 2017-06-10 16:46 | Emergency (ER) | payer MEDICAID ==
[~2017-06-10] VITALS: Ht 165.1 cm; Wt 63.0 kg
[2017-06-10 17:22] VITALS: BP 108/66
== END 2017-06-10 19:40 | disposition left against medical advice (07) ==
LOC: ER 18:19
DX: R10.9 Unspecified abdominal pain (principal); R11.2 Nausea with vomiting, unspecified; Z53.21 Procedure and treatment not carried out due to patient leaving prior to being seen by health care provider

== ENCOUNTER 2018-01-21 14:36 | Emergency (ER) | payer MEDICAID ==
[~2018-01-21] VITALS: Ht 162.6 cm; Wt 62.0 kg
[~2018-01-21 14:36] MED LIST changes: +KEPP500 PO; +LORA-250 PO; +METO10TA3 PO
[2018-01-21] MEDS ORDERED: FAMOTIDINE 20MG/2ML VIAL IV STA (15:37)
[2018-01-21] MEDS ORDERED: SODIUM CHLORIDE 0.9% 1,000 ML IV ONE ×2 (15:37→18:24)
[2018-01-21] MEDS ORDERED: ONDANSETRON HCL 4MG/2ML VIAL IV STA (15:37)
[2018-01-21] MEDS ORDERED: MAGNESIUM/ALUMINUM HYDROXIDE/SIMETHICONE 30ML UDC PO STA (15:37)
[2018-01-21 17:37] LABS: CHLORIDE 101 mEq/L (98-107)
[2018-01-21 17:43] LABS: ETHANOL BLOOD < 10 mg/dL
[2018-01-21 17:44] LABS: CLARITY URINE TURBID (CLEAR); COLOR URINE YELLOW (YELLOW); KETONES URINE TRACE (NEGATIVE); LEUKOCYTE ESTERASE URINE 2+ (NEGATIVE); NITRITE URINE NEGATIVE (NEGATIVE); OCCULT BLOOD URINE NEGATIVE (NEGATIVE); PH URINE >=9.0 (4.5-8.0); PROTEIN URINE 1+ (NEGATIVE); SPECIFIC GRAVITY URINE 1.015 (1.005-1.030); UROBILINOGEN URINE 0.2 E.U./dL (0.2-1.0)
[2018-01-21] MEDS ORDERED: ONDANSETRON HCL 4MG/2ML VIAL IV ONE (17:45)
[2018-01-21] MEDS ORDERED: KETOROLAC 30MG/ML VIAL IV ONE (17:45)
[2018-01-21 17:46] LABS: HCG SCREEN NEGATIVE
[2018-01-21 17:56] LABS: INR 0.9; PROTHROMBIN TIME 9.5 sec (9.1-11.1)
[2018-01-21 17:56] LABS: *COCAINE SCREEN URINE NEGATIVE (NEGATIVE)
[2018-01-21 17:57] LABS: *BARBITURATES SCREEN URINE NEGATIVE (NEGATIVE); *BENZODIAZEPINES SCREEN URINE NEGATIVE (NEGATIVE); METHADONE URINE SCREEN NEGATIVE (NEGATIVE); OPIATES URINE SCREEN NEGATIVE (NEGATIVE); PHENCYCLIDINE URINE SCREEN NEGATIVE (NEGATIVE)
[2018-01-21 17:58] LABS: *AMPHETAMINES SCREEN URINE NEGATIVE (NEGATIVE)
[2018-01-21 18:03] LABS: CANNABINOID URINE SCREEN PRESUMTIVE POSITIVE (NEGATIVE)
[2018-01-21] MEDS ORDERED: MORPHINE SULFATE 10 MG/ML CPJ IM ONE (18:15)
[2018-01-21] MEDS ORDERED: DIPHENHYDRAMINE 50MG/ML VIAL IV ONE (18:15)
[2018-01-21] MEDS ORDERED: LORAZEPAM 2MG/ML CPJ IV ONE (18:30)
[2018-01-21] MEDS ORDERED: METOCLOPRAMIDE HCL 10MG/2ML VIAL IV ONE (21:45)
[2018-01-21 23:35] VITALS: BP 124/86
[2018-01-22] MEDS ORDERED: ONDANSETRON HCL 4MG/2ML VIAL IV ONE
[2018-01-22 00:10] LABS: BASOPHILS % 0.5 % (0.0-2.0); EOSINOPHILS % 1.3 % (0.0-5.0); HEMATOCRIT. 32.6 % (36.0-48.0); LYMPHOCYTES % 7.1 % (20.0-50.0); MEAN CORPUSCULAR VOLUME 82.8 fL (81.0-99.0); MEAN PLATELET VOLUME 8.4 fl (7.4-10.4); MONOCYTES % 1.6 % (2.0-8.0); NEUTROPHILS % 89.5 % (40.0-76.0); PLATELET 353 x1000/uL (130-400); RED BLOOD CELL COUNT 3.93 mill/uL (4.2-5.4); RED CELL DISTRIBUTION WIDTH 14.8 % (11.6-14.6)
== END 2018-01-21 23:55 | disposition home or self-care (01) ==
LOC: ER 14:36
DX: F12.288 Cannabis dependence with other cannabis-induced disorder (principal); K29.70 Gastritis, unspecified, without bleeding; J45.909 Unspecified asthma, uncomplicated; I50.9 Heart failure, unspecified; Z88.5 Allergy status to narcotic agent; Z90.49 Acquired absence of other specified parts of digestive tract; Z79.899 Other long term (current) drug therapy
CPT/HCPCS: 36415; 76705; 80053; 80305; 81003; 83690; 84484; 84703; 85025; 85610; 96361; 96372; 96374; 96375; 96376; 99285; G0482; J1200; J1885; J2060; J2270; J2405; J2765; J3490; J7030; Z7610

== ENCOUNTER 2018-01-23 09:35 | Emergency (ER) | payer MEDICAID ==
[~2018-01-23] VITALS: Ht 157.5 cm; Wt 56.0 kg
[2018-01-23] MEDS ORDERED: FAMOTIDINE 20MG/2ML VIAL IV STA (09:58)
[2018-01-23] MEDS ORDERED: LORAZEPAM 2MG/ML CPJ IV ONE (10:00)
[2018-01-23] MEDS ORDERED: ONDANSETRON HCL 4MG/2ML VIAL IV ONE (10:00)
[2018-01-23 10:59] LABS: BASOPHILS % 0.5 % (0.0-2.0); EOSINOPHILS % 0.4 % (0.0-5.0); HEMATOCRIT. 33.2 % (36.0-48.0); HEMOGLOBIN. 11.1 g/dL (12.0-16.0); LYMPHOCYTES % 9.7 % (20.0-50.0); MEAN CORPUSCULAR HEMOGLOBIN 28.2 pg (28.0-32.0); MEAN CORPUSCULAR VOLUME 84.7 fL (81.0-99.0); MEAN PLATELET VOLUME 8.2 fl (7.4-10.4); MONOCYTES % 3.8 % (2.0-8.0); NEUTROPHILS % 85.6 % (40.0-76.0); PLATELET 315 x1000/uL (130-400); RED BLOOD CELL COUNT 3.92 mill/uL (4.2-5.4); RED CELL DISTRIBUTION WIDTH 15.1 % (11.6-14.6)
[2018-01-23 11:06] LABS: CHLORIDE 105 mEq/L (98-107)
[2018-01-23 11:08] LABS: INR 0.9; PARTIAL THROMBOPLASTIN TIME 21.9 sec (23.4-31.0); PROTHROMBIN TIME 9.4 sec (9.1-11.1)
[2018-01-23 11:10] LABS: ETHANOL BLOOD < 10 mg/dL
[2018-01-23 11:12] LABS: HCG SCREEN NEGATIVE
[2018-01-23 13:20] LABS: CLARITY URINE CLOUDY (CLEAR); COLOR URINE YELLOW (YELLOW); KETONES URINE NEGATIVE (NEGATIVE); LEUKOCYTE ESTERASE URINE 1+ (NEGATIVE); NITRITE URINE NEGATIVE (NEGATIVE); OCCULT BLOOD URINE NEGATIVE (NEGATIVE); PH URINE 8.5 (4.5-8.0); PROTEIN URINE NEGATIVE (NEGATIVE); SPECIFIC GRAVITY URINE 1.015 (1.005-1.030); UROBILINOGEN URINE 0.2 E.U./dL (0.2-1.0)
[2018-01-23] MEDS ORDERED: CEFTRIAXONE 1 G PREMIX 50 ML IV ONE (14:00)
[2018-01-23 14:13] LABS: *AMPHETAMINES SCREEN URINE NEGATIVE (NEGATIVE); *BARBITURATES SCREEN URINE NEGATIVE (NEGATIVE)
[2018-01-23 14:14] LABS: *BENZODIAZEPINES SCREEN URINE NEGATIVE (NEGATIVE); METHADONE URINE SCREEN NEGATIVE (NEGATIVE); OPIATES URINE SCREEN NEGATIVE (NEGATIVE); PHENCYCLIDINE URINE SCREEN NEGATIVE (NEGATIVE)
[2018-01-23 14:16] LABS: *COCAINE SCREEN URINE NEGATIVE (NEGATIVE)
[2018-01-23 14:17] LABS: CANNABINOID URINE SCREEN PRESUMTIVE POSITIVE (NEGATIVE)
[2018-01-23 16:09] VITALS: BP 106/70
== END 2018-01-23 16:12 | disposition home or self-care (01) ==
LOC: ER 09:35
DX: N39.0 Urinary tract infection, site not specified (principal); R11.10 Vomiting, unspecified
CPT/HCPCS: 36415; 74022; 80053; 80305; 81003; 81025; 82962; 83690; 83735; 83880; 84484; 84703; 85025; 85610; 85730; 93005; 96365; 96375; 99285; G0482; J0696; J2060; J2405; J3490

== ENCOUNTER 2018-01-23 16:25 | Inpatient (IN) | payer MEDICAID ==
[~2018-01-23] VITALS: Ht 152.4 cm; Wt 56.7 kg
[2018-01-23] MEDS ORDERED: SODIUM CHLORIDE 0.9% 1,000 ML IV ONE (16:53)
[2018-01-23] MEDS ORDERED: KETOROLAC 30MG/ML VIAL IV STA (16:53)
[2018-01-23] MEDS ORDERED: LEVETIRACETAM 500MG PREMIX 100 ML IV ONE (17:00)
[2018-01-23 18:36] LABS: BASOPHILS % 0.3 % (0.0-2.0); EOSINOPHILS % 0.1 % (0.0-5.0); HEMATOCRIT. 34.9 % (36.0-48.0); HEMOGLOBIN. 11.8 g/dL (12.0-16.0); LYMPHOCYTES % 7.5 % (20.0-50.0); MEAN CORPUSCULAR HEMOGLOBIN 27.9 pg (28.0-32.0); MEAN CORPUSCULAR VOLUME 82.9 fL (81.0-99.0); MEAN PLATELET VOLUME 8.1 fl (7.4-10.4); MONOCYTES % 2.3 % (2.0-8.0); NEUTROPHILS % 89.8 % (40.0-76.0); PLATELET 373 x1000/uL (130-400); RED BLOOD CELL COUNT 4.21 mill/uL (4.2-5.4); RED CELL DISTRIBUTION WIDTH 15.3 % (11.6-14.6)
[2018-01-23] MEDS ORDERED: ONDANSETRON HCL 4MG/2ML INJ IV ONE (19:45)
[2018-01-23 22:00] VITALS: BP 158/88
[2018-01-23 23:44] LABS: HCG SCREEN NEGATIVE
[2018-01-24] VITALS: BP 111/75
[2018-01-24] MEDS ORDERED: ONDANSETRON HCL 4MG/2ML INJ IV PRN
[2018-01-24 00:21] LABS: UCG SCREEN NEGATIVE
[2018-01-24 00:28] LABS: *AMPHETAMINES SCREEN URINE NEGATIVE (NEGATIVE); *BARBITURATES SCREEN URINE NEGATIVE (NEGATIVE); *BENZODIAZEPINES SCREEN URINE NEGATIVE (NEGATIVE)
[2018-01-24 00:29] LABS: *COCAINE SCREEN URINE NEGATIVE (NEGATIVE); METHADONE URINE SCREEN NEGATIVE (NEGATIVE); OPIATES URINE SCREEN NEGATIVE (NEGATIVE); PHENCYCLIDINE URINE SCREEN NEGATIVE (NEGATIVE)
[2018-01-24] MEDS ORDERED: METOCLOPRAMIDE 10MG/10 ML UDC PO PRN (00:30)
[2018-01-24 00:37] LABS: CANNABINOID URINE SCREEN PRESUMTIVE POSITIVE (NEGATIVE)
[2018-01-24] MEDS: SODIUM CHLORIDE 0.9% 1,000 ML IV SCH ×2 (00:59→14:18)
[2018-01-24 04:00] VITALS: BP 139/62
[2018-01-24] MEDS: LORAZEPAM 1MG TABLET PO PRN (06:38)
[2018-01-24 08:00] VITALS: BP 130/72
[2018-01-24] MEDS ORDERED: LEVETIRACETAM 500MG/5ML CUP PO SCH (09:00)
[2018-01-24] MEDS ORDERED: KETOROLAC 15MG/ML VIAL IV PRN (09:30)
[2018-01-24 09:32] LABS: BASOPHILS % 0.4 % (0.0-2.0); EOSINOPHILS % 0.2 % (0.0-5.0); HEMATOCRIT. 36.5 % (36.0-48.0); LYMPHOCYTES % 17.6 % (20.0-50.0); MEAN CORPUSCULAR HEMOGLOBIN 27.3 pg (28.0-32.0); MEAN CORPUSCULAR VOLUME 83.2 fL (81.0-99.0); MEAN PLATELET VOLUME 8.5 fl (7.4-10.4); MONOCYTES % 7.8 % (2.0-8.0); PLATELET 287 x1000/uL (130-400); RED BLOOD CELL COUNT 4.38 mill/uL (4.2-5.4); RED CELL DISTRIBUTION WIDTH 14.9 % (11.6-14.6)
[2018-01-24 09:50] LABS: CHLORIDE 97 mEq/L (98-107)
[2018-01-24] MEDS: HYDROCODONE/ACETAMINOPHEN 5/325MG TABLET PO PRN ×2 (09:54→14:23)
[2018-01-24 10:00] LABS: CREATINE KINASE 75 IU/L (26-192)
[2018-01-24] MEDS: LOSARTAN POTASSIUM 50 MG TABLET PO SCH ×2 (10:00→16:15)
[2018-01-24] MEDS ORDERED: KETOROLAC 30MG/ML VIAL IV PRN ×2 (10:00)
[2018-01-24] MEDS: CARVEDILOL 3.125 MG TABLET PO SCH ×2 (10:00→21:00)
[2018-01-24] MEDS: ENOXAPARIN 40MG/0.4ML SYR SUBCUT SCH (10:00)
[2018-01-24 10:02] LABS: AMMONIA 71 uMol/L (<32)
[2018-01-24 10:03] LABS: CREATINE KINASE MB FRACTION < 1.0 ng/mL (0.5-3.6)
[2018-01-24 10:20] LABS: FOLIC ACID (FOLATE) SERUM 17.1 ng/mL (>5.38)
[2018-01-24] MEDS ORDERED: POTASSIUM CHLORIDE 20MEQ/PACKET PO NR (10:45)
[2018-01-24 11:25] LABS: AMYLASE 96 IU/L (25-115)
[2018-01-24 12:00] VITALS: BP 109/86
[2018-01-24 12:21] LABS: PROTHROMBIN TIME 10.3 sec (9.1-11.1)
[2018-01-24 12:30] LABS: CREATINE KINASE 69 IU/L (26-192)
[2018-01-24 12:31] LABS: CREATINE KINASE MB FRACTION < 1.0 ng/mL (0.5-3.6)
[2018-01-24] MEDS ORDERED: KETOROLAC 10MG TABLET PO PRN ×2 (15:45)
[2018-01-24] MEDS ORDERED: ONDANSETRON 4MG ODT PO PRN (15:45)
[2018-01-24] MEDS ORDERED: HYDROMORPHONE HCL 2MG TABLET PO PRN (15:45)
[2018-01-24 16:00] VITALS: BP 102/68
[2018-01-24] MEDS: METOCLOPRAMIDE 10MG/10 ML UDC PO SCH ×2 (16:49→21:18)
[2018-01-24] MEDS: KETOROLAC 30MG/ML VIAL IV PRN (17:48)
[2018-01-24 20:00] VITALS: BP 101/71
[2018-01-24] MEDS ORDERED: LEVETIRACETAM 500MG TABLET PO SCH (21:00)
[2018-01-24] MEDS: CARVEDILOL 6.25 MG TABLET PO SCH (21:00)
[2018-01-24] MEDS: KETOROLAC 15MG/ML VIAL IV PRN (21:17)
[2018-01-25] VITALS: BP 104/69
[2018-01-25 04:00] VITALS: BP 92/51
[2018-01-25 05:59] VITALS: BP 96/54
[2018-01-25] MEDS: METOCLOPRAMIDE 10MG/10 ML UDC PO SCH ×4 (06:23→21:15)
[2018-01-25] MEDS: KETOROLAC 30MG/ML VIAL IV PRN (06:24)
[2018-01-25 06:59] LABS: BASOPHILS % 0.5 % (0.0-2.0); HEMATOCRIT. 36.5 % (36.0-48.0); LYMPHOCYTES % 38.8 % (20.0-50.0); MEAN CORPUSCULAR HEMOGLOBIN 27.9 pg (28.0-32.0); MEAN CORPUSCULAR VOLUME 84.7 fL (81.0-99.0); MEAN PLATELET VOLUME 7.9 fl (7.4-10.4); MONOCYTES % 6.9 % (2.0-8.0); NEUTROPHILS % 52.8 % (40.0-76.0); PLATELET 295 x1000/uL (130-400); RED BLOOD CELL COUNT 4.31 mill/uL (4.2-5.4); RED CELL DISTRIBUTION WIDTH 15.1 % (11.6-14.6)
[2018-01-25 07:12] LABS: CHLORIDE 100 mEq/L (98-107)
[2018-01-25 08:00] VITALS: BP 106/67
[2018-01-25] MEDS: LEVETIRACETAM 250MG TABLET PO SCH ×2 (08:48→21:15)
[2018-01-25] MEDS: ENOXAPARIN 40MG/0.4ML SYR SUBCUT SCH (08:48)
[2018-01-25] MEDS: KETOROLAC 15MG/ML VIAL IV PRN ×2 (08:49→17:53)
[2018-01-25] MEDS: LORAZEPAM 1MG TABLET PO PRN (08:59)
[2018-01-25] MEDS: LOSARTAN POTASSIUM 50 MG TABLET PO SCH ×2 (09:00)
[2018-01-25] MEDS: CARVEDILOL 3.125 MG TABLET PO SCH (09:00)
[2018-01-25] MEDS: CARVEDILOL 6.25 MG TABLET PO SCH ×2 (09:00→21:00)
[2018-01-25] MEDS ORDERED: LIDOCAINE HCL 1% 10 MG/ML 10ML VIAL ONE (09:00)
[2018-01-25] MEDS ORDERED: SODIUM BICARBONATE 4% (2.4MEQ) 5ML VIAL IV ONE (09:00)
[2018-01-25] MEDS ORDERED: POTASSIUM CHLORIDE 20MEQ TABLET SR PO SCH (09:45)
[2018-01-25 12:00] VITALS: BP 129/92
[2018-01-25] MEDS: HYDROMORPHONE HCL/PF 2MG/ML CPJ IV PRN ×2 (13:24→19:43)
[2018-01-25 14:37] LABS: CLARITY URINE CLOUDY (CLEAR); COLOR URINE YELLOW (YELLOW); KETONES URINE NEGATIVE (NEGATIVE); LEUKOCYTE ESTERASE URINE 3+ (NEGATIVE); NITRITE URINE NEGATIVE (NEGATIVE); OCCULT BLOOD URINE NEGATIVE (NEGATIVE); PROTEIN URINE NEGATIVE (NEGATIVE); SPECIFIC GRAVITY URINE 1.008 (1.005-1.030); UROBILINOGEN URINE 0.2 E.U./dL (0.2-1.0)
[2018-01-25] MEDS: LACTULOSE 20G/30ML UDC PO SCH ×2 (17:52→21:15)
[2018-01-25] MEDS: SODIUM CHLORIDE 0.9% 1,000 ML IV SCH ×2 (17:58→18:54)
[2018-01-25] MEDS ORDERED: LEVOFLOXACIN 750MG PREMIX 150 ML IV SCH (18:00)
[2018-01-25 19:44] VITALS: BP 121/92
[2018-01-26] MEDS: HYDROCODONE/ACETAMINOPHEN 5/325MG TABLET PO PRN ×2 (00:54→16:55)
[2018-01-26] MEDS: HYDROMORPHONE HCL/PF 2MG/ML CPJ IV PRN ×2 (02:08→08:37)
[2018-01-26] MEDS: METOCLOPRAMIDE 10MG/10 ML UDC PO SCH ×3 (06:13→17:02)
[2018-01-26] MEDS: LACTULOSE 20G/30ML UDC PO SCH ×2 (06:13→13:39)
[2018-01-26 06:18] LABS: BASOPHILS % 0.5 % (0.0-2.0); HEMATOCRIT. 32.8 % (36.0-48.0); HEMOGLOBIN. 11.1 g/dL (12.0-16.0); LYMPHOCYTES % 44.9 % (20.0-50.0); MEAN CORPUSCULAR HEMOGLOBIN 28.3 pg (28.0-32.0); MEAN CORPUSCULAR VOLUME 83.7 fL (81.0-99.0); MONOCYTES % 8.2 % (2.0-8.0); NEUTROPHILS % 44.4 % (40.0-76.0); PLATELET 326 x1000/uL (130-400); RED BLOOD CELL COUNT 3.92 mill/uL (4.2-5.4); RED CELL DISTRIBUTION WIDTH 14.6 % (11.6-14.6)
[2018-01-26 07:00] LABS: CHLORIDE 107 mEq/L (98-107)
[2018-01-26 07:07] LABS: PHOSPHORUS 3.5 mg/dL (2.5-4.9)
[2018-01-26 07:10] LABS: AMMONIA 29 uMol/L (<32)
[2018-01-26 08:00] VITALS: BP 132/72
[2018-01-26] MEDS: LEVETIRACETAM 250MG TABLET PO SCH (08:35)
[2018-01-26] MEDS: ENOXAPARIN 40MG/0.4ML SYR SUBCUT SCH (08:35)
[2018-01-26] MEDS: CARVEDILOL 6.25 MG TABLET PO SCH (08:36)
[2018-01-26] MEDS: LOSARTAN POTASSIUM 50 MG TABLET PO SCH (08:36)
[2018-01-26] MEDS: SODIUM CHLORIDE 0.9% 1,000 ML IV SCH ×2 (08:36→16:59)
[2018-01-26 11:55] VITALS: BP 125/76
[2018-01-26] MEDS: KETOROLAC 30MG/ML VIAL IV PRN (15:06)
[2018-01-26 16:00] VITALS: BP 124/90
[2018-01-26] MEDS ORDERED: KEPP250 PO (16:02)
[2018-01-26] MEDS ORDERED: LEVOFLOXACIN 250MG TABLET PO SCH (16:30)
[2018-01-26] MEDS: LORAZEPAM 1MG TABLET PO PRN (16:54)
[2018-01-26 16:55] VITALS: BP 124/90
== END 2018-01-26 18:30 | disposition left against medical advice (07) | DRG 465 ==
LOC: ER 16:25 → 8WST 20:25 → ENRESERV 21:03
PROVIDERS: ADMIT Internal Medicine; ATTEND Internal Medicine
PROC: 4A00X4Z Measurement of Central Nervous Electrical Activity, External Approach (ICD-10-PCS; principal; 2018-01-25)
DX: N20.0 Calculus of kidney (principal); I11.0 Hypertensive heart disease with heart failure; E72.20 Disorder of urea cycle metabolism, unspecified; E46 Unspecified protein-calorie malnutrition; I50.9 Heart failure, unspecified; N39.0 Urinary tract infection, site not specified; G40.802 Other epilepsy, not intractable, without status epilepticus; E87.6 Hypokalemia; G43.909 Migraine, unspecified, not intractable, without status migrainosus; J45.909 Unspecified asthma, uncomplicated; Z90.49 Acquired absence of other specified parts of digestive tract; Z79.899 Other long term (current) drug therapy; Z88.6 Allergy status to analgesic agent; Z68.24 Body mass index [BMI] 24.0-24.9, adult
CPT/HCPCS: 36415; 70450; 70551; 71045; 74176; 80048; 80053; 80305; 81003; 81025; 82140; 82150; 82542; 82550; 82553; 82607; 82746; 82962; 83036; 83690; 83735; 83880; 84100; 84484; 84703; 85025; 85610; 87086; 93005; 93970; 96361; 96374; 96375; 99285; C1893; J1170; J1650; J1885; J1953; J1956; J2405; J3490; J7030; J7050; J8597

== ENCOUNTER 2018-04-08 07:42 | Inpatient (IN) | payer MEDICAID ==
[~2018-04-08] VITALS: Ht 152.4 cm; Wt 76.7 kg
[~2018-04-08 07:42] MED LIST changes: +KEPP250 PO
[2018-04-08] MEDS ORDERED: SODIUM CHLORIDE 0.9% 1,000 ML IV ONE (08:17)
[2018-04-08] MEDS ORDERED: ONDANSETRON HCL 4MG/2ML INJ IV STA (08:17)
[2018-04-08] MEDS ORDERED: FAMOTIDINE 20MG/2ML VIAL IV STA (08:17)
[2018-04-08] MEDS ORDERED: KETOROLAC 30MG/ML VIAL IV STA (08:17)
[2018-04-08] MEDS ORDERED: ACETAMINOPHEN 325MG TABLET PO ONE (08:45)
[2018-04-08] MEDS ORDERED: TRAMADOL 50MG TABLET PO ONE (09:00)
[2018-04-08 09:01] LABS: CLARITY URINE HAZY (CLEAR); COLOR URINE YELLOW (YELLOW); KETONES URINE NEGATIVE (NEGATIVE); LEUKOCYTE ESTERASE URINE 1+ (NEGATIVE); NITRITE URINE NEGATIVE (NEGATIVE); OCCULT BLOOD URINE 3+ (NEGATIVE); PROTEIN URINE NEGATIVE (NEGATIVE); SPECIFIC GRAVITY URINE 1.015 (1.005-1.030)
[2018-04-08 09:07] LABS: HCG SCREEN NEGATIVE
[2018-04-08 09:14] LABS: EOSINOPHILS % 1.5 % (0.0-5.0); HEMATOCRIT. 38.5 % (36.0-48.0); HEMOGLOBIN. 12.9 g/dL (12.0-16.0); LYMPHOCYTES % 38.5 % (20.0-50.0); MEAN CORPUSCULAR HEMOGLOBIN 27.7 pg (28.0-32.0); MEAN CORPUSCULAR VOLUME 82.7 fL (81.0-99.0); MEAN PLATELET VOLUME 8.5 fl (7.4-10.4); MONOCYTES % 6.4 % (2.0-8.0); NEUTROPHILS % 52.6 % (40.0-76.0); PLATELET 349 x1000/uL (130-400); RED BLOOD CELL COUNT 4.66 mill/uL (4.2-5.4); RED CELL DISTRIBUTION WIDTH 14.9 % (11.6-14.6)
[2018-04-08 09:17] LABS: CHLORIDE 105 mEq/L (98-107)
[2018-04-08] MEDS ORDERED: ACETAMINOPHEN WITH CODEINE 300/30MG TABLET PO ONE (09:30)
[2018-04-08] MEDS ORDERED: DIPHENHYDRAMINE 50MG/ML VIAL IV ONE (09:45)
[2018-04-08] MEDS ORDERED: POTASSIUM CHLORIDE 20MEQ TABLET SR PO ONE (09:45)
[2018-04-08] MEDS ORDERED: KCL 20MEQ/100ML PREMIX 100 ML IV ONE (09:45)
[2018-04-08] MEDS ORDERED: ONDANSETRON HCL 4MG/2ML INJ IV ONE (09:45)
[2018-04-08] MEDS ORDERED: MORPHINE SULFATE 4 MG/ML CPJ (NOT FOR IM USE) IV ONE (09:45)
[2018-04-08] MEDS ORDERED: CEFTRIAXONE 1 G PREMIX 50 ML IV ONE (10:45)
[2018-04-08] MEDS ORDERED: IPRATROPIUM/ALBUTEROL 0.5-3(2.5)MG/3ML NEB INH PRN (12:15)
[2018-04-08] MEDS ORDERED: HYDROCODONE/ACETAMINOPHEN 5/325MG TABLET PO PRN (12:15)
[2018-04-08] MEDS ORDERED: DOCUSATE SODIUM 100MG CAPSULE PO PRN (12:15)
[2018-04-08] MEDS ORDERED: ONDANSETRON HCL 4MG/2ML INJ IV PRN (12:15)
[2018-04-08] MEDS ORDERED: ACETAMINOPHEN 325MG TABLET PO PRN (12:15)
[2018-04-08] MEDS ORDERED: CLONIDINE 0.1MG TABLET PO PRN (12:15)
[2018-04-08] MEDS ORDERED: MAGNESIUM/ALUMINUM HYDROXIDE/SIMETHICONE 30ML UDC PO PRN (12:15)
[2018-04-08] MEDS ORDERED: LORAZEPAM 2MG/ML CPJ IV PRN (12:15)
[2018-04-08 13:15] VITALS: BP 133/79
[2018-04-08 15:55] VITALS: BP 111/66
[2018-04-08] MEDS: ENOXAPARIN 40MG/0.4ML SYR SUBCUT SCH (16:00)
[2018-04-08] MEDS ORDERED: ALPRAZOLAM 0.25 MG TABLET PO PRN (16:45)
[2018-04-08 17:00] VITALS: BP 125/74
[2018-04-08] MEDS: METOCLOPRAMIDE HCL 10MG/2ML VIAL IV SCH ×2 (18:36→23:58)
[2018-04-08] MEDS: SODIUM CHLORIDE 0.9% 1,000 ML IV SCH (18:36)
[2018-04-08] MEDS: PANTOPRAZOLE SODIUM 40 MG/VIAL IV SCH (18:36)
[2018-04-08 20:00] VITALS: BP 141/95
[2018-04-08] MEDS: LEVETIRACETAM 500MG TABLET PO SCH (20:47)
[2018-04-08] MEDS: DIPHENHYDRAMINE 50MG/ML VIAL IV PRN (20:49)
[2018-04-08] MEDS: MORPHINE SULFATE 4 MG/ML CPJ (NOT FOR IM USE) IV PRN (20:51)
[2018-04-08 23:20] LABS: CREATINE KINASE 142 IU/L (26-192)
[2018-04-08 23:21] LABS: CREATINE KINASE MB FRACTION < 1.0 ng/mL (0.5-3.6)
[2018-04-09] VITALS (7 sets, daily range): BP systolic 97–118; BP diastolic 74–94
[2018-04-09 00:56] LABS: CHLORIDE 103 mEq/L (98-107)
[2018-04-09] MEDS: DIPHENHYDRAMINE 50MG/ML VIAL IV PRN ×4 (03:58→23:40)
[2018-04-09] MEDS: MORPHINE SULFATE 4 MG/ML CPJ (NOT FOR IM USE) IV PRN ×4 (03:59→23:40)
[2018-04-09] MEDS: METOCLOPRAMIDE HCL 10MG/2ML VIAL IV SCH ×5 (05:55→23:40)
[2018-04-09 07:56] LABS: *AMPHETAMINES SCREEN URINE NEGATIVE (NEGATIVE); *BARBITURATES SCREEN URINE NEGATIVE (NEGATIVE); *BENZODIAZEPINES SCREEN URINE NEGATIVE (NEGATIVE); *COCAINE SCREEN URINE NEGATIVE (NEGATIVE); METHADONE URINE SCREEN NEGATIVE (NEGATIVE); PHENCYCLIDINE URINE SCREEN NEGATIVE (NEGATIVE)
[2018-04-09 08:02] LABS: CANNABINOID URINE SCREEN PRESUMTIVE POSITIVE (NEGATIVE); OPIATES URINE SCREEN PRESUMTIVE POSITIVE (NEGATIVE)
[2018-04-09 09:43] LABS: EOSINOPHILS % 0.5 % (0.0-5.0); HEMATOCRIT. 36.3 % (36.0-48.0); HEMOGLOBIN. 12.3 g/dL (12.0-16.0); LYMPHOCYTES % 26.1 % (20.0-50.0); MEAN CORPUSCULAR HEMOGLOBIN 27.7 pg (28.0-32.0); MEAN CORPUSCULAR VOLUME 81.9 fL (81.0-99.0); MONOCYTES % 5.4 % (2.0-8.0); PLATELET 314 x1000/uL (130-400); RED BLOOD CELL COUNT 4.43 mill/uL (4.2-5.4); RED CELL DISTRIBUTION WIDTH 14.7 % (11.6-14.6)
[2018-04-09] MEDS: LEVETIRACETAM 500MG TABLET PO SCH ×2 (09:58→21:38)
[2018-04-09] MEDS: PANTOPRAZOLE SODIUM 40 MG/VIAL IV SCH (13:00)
[2018-04-09] MEDS: SODIUM CHLORIDE 0.9% 1,000 ML IV SCH ×2 (14:46→14:49)
[2018-04-09] MEDS ORDERED: POTASSIUM CHLORIDE 20MEQ TABLET SR PO NR ×2 (15:15→19:15)
[2018-04-09] MEDS: ENOXAPARIN 40MG/0.4ML SYR SUBCUT SCH (19:24)
[2018-04-09] MEDS ORDERED: KETOROLAC 15MG/ML VIAL IV PRN (19:30)
[2018-04-10 04:00] VITALS: BP 109/66
[2018-04-10] MEDS: SODIUM CHLORIDE 0.9% 1,000 ML IV SCH ×2 (04:49→17:13)
[2018-04-10] MEDS: METOCLOPRAMIDE HCL 10MG/2ML VIAL IV SCH ×3 (06:00→17:13)
[2018-04-10 08:00] VITALS: BP 112/70
[2018-04-10] MEDS: PANTOPRAZOLE SODIUM 40 MG/VIAL IV SCH ×2 (08:59→20:59)
[2018-04-10] MEDS: LEVETIRACETAM 500MG TABLET PO SCH ×2 (08:59→20:59)
[2018-04-10] MEDS: DIPHENHYDRAMINE 50MG/ML VIAL IV PRN ×3 (08:59→22:36)
[2018-04-10] MEDS: MORPHINE SULFATE 4 MG/ML CPJ (NOT FOR IM USE) IV PRN ×3 (09:00→22:37)
[2018-04-10 12:00] VITALS: BP 118/74
[2018-04-10 16:00] VITALS: BP 112/70
[2018-04-10] MEDS: ENOXAPARIN 40MG/0.4ML SYR SUBCUT SCH (17:13)
[2018-04-10 20:00] VITALS: BP 115/72
[2018-04-10 22:29] VITALS: BP 118/68
[2018-04-11] VITALS: BP 110/62
[2018-04-11 04:00] VITALS: BP 98/58
[2018-04-11 06:02] VITALS: BP 110/60
[2018-04-11] MEDS: DIPHENHYDRAMINE 50MG/ML VIAL IV PRN ×2 (06:10→12:23)
[2018-04-11] MEDS: METOCLOPRAMIDE HCL 10MG/2ML VIAL IV SCH ×3 (06:10→12:17)
[2018-04-11] MEDS: MORPHINE SULFATE 4 MG/ML CPJ (NOT FOR IM USE) IV PRN ×2 (06:11→12:20)
[2018-04-11] MEDS: SODIUM CHLORIDE 0.9% 1,000 ML IV SCH (06:11)
[2018-04-11 07:59] LABS: CHLORIDE 102 mEq/L (98-107)
[2018-04-11 08:00] VITALS: BP 108/82
[2018-04-11] MEDS: LEVETIRACETAM 500MG TABLET PO SCH (09:00)
[2018-04-11] MEDS: PANTOPRAZOLE SODIUM 40 MG/VIAL IV SCH (09:16)
[2018-04-11 11:58] VITALS: BP 122/84
[2018-04-11 14:59] VITALS: BP 122/84
== END 2018-04-11 15:15 | disposition home or self-care (01) | DRG 812 ==
LOC: ER 07:42 → 6WST 11:11 → EDBEDREQ 11:15 → ENRESERV 11:57 → 6WST 13:18
PROVIDERS: ADMIT Internal Medicine; ATTEND Internal Medicine
DX: T40.7X1A Poisoning by cannabis (derivatives), accidental (unintentional), initial encounter (principal); I11.0 Hypertensive heart disease with heart failure; I50.9 Heart failure, unspecified; K29.70 Gastritis, unspecified, without bleeding; K31.89 Other diseases of stomach and duodenum; E87.6 Hypokalemia; G40.909 Epilepsy, unspecified, not intractable, without status epilepticus; J45.909 Unspecified asthma, uncomplicated; N20.0 Calculus of kidney; F12.90 Cannabis use, unspecified, uncomplicated; G89.29 Other chronic pain; G43.909 Migraine, unspecified, not intractable, without status migrainosus; R11.11 Vomiting without nausea; Z88.5 Allergy status to narcotic agent; Z87.442 Personal history of urinary calculi; Z90.49 Acquired absence of other specified parts of digestive tract; Z79.899 Other long term (current) drug therapy
CPT/HCPCS: 36415; 74176; 76700; 80048; 80061; 80305; 82550; 82553; 83735; 84443; 84484; 84703; 93005; 93970; 96361; 96374; 96375; 99285; C1893; C9113; J0696; J1200; J1650; J1885; J2270; J2405; J2765; J3480; J3490; J7030

== ENCOUNTER 2018-05-20 03:51 | Inpatient (IN) | payer MEDICAID ==
[~2018-05-20] VITALS: Ht 167.6 cm; Wt 65.8 kg
[2018-05-20] VITALS (60 sets, daily range): BP systolic 79–130; BP diastolic 47–103
[~2018-05-20 03:51] MED LIST changes: -KEPP250 PO
[2018-05-20] MEDS ORDERED: HALOPERIDOL LACTATE 5MG/ML VIAL IM ONE (04:30)
[2018-05-20] MEDS ORDERED: NITROGLYCERIN 0.4MG TABLET SL SL ONE (04:30)
[2018-05-20 05:19] LABS: CHLORIDE 107 mEq/L (98-107)
[2018-05-20 08:01] LABS: *AMPHETAMINES SCREEN URINE NEGATIVE (NEGATIVE); *BARBITURATES SCREEN URINE NEGATIVE (NEGATIVE); *BENZODIAZEPINES SCREEN URINE NEGATIVE (NEGATIVE)
[2018-05-20 08:02] LABS: *COCAINE SCREEN URINE NEGATIVE (NEGATIVE); METHADONE URINE SCREEN NEGATIVE (NEGATIVE); PHENCYCLIDINE URINE SCREEN NEGATIVE (NEGATIVE)
[2018-05-20 08:10] LABS: CANNABINOID URINE SCREEN PRESUMTIVE POSITIVE (NEGATIVE); OPIATES URINE SCREEN PRESUMTIVE POSITIVE (NEGATIVE)
[2018-05-20] MEDS ORDERED: ASPIRIN 81MG TABLET PO ONE (08:15)
[2018-05-20 08:17] LABS: PARTIAL THROMBOPLASTIN TIME 28.2 sec (23.4-31.0); PROTHROMBIN TIME 10.2 sec (9.1-11.1)
[2018-05-20] MEDS ORDERED: IOHEXOL-350 100 ML BOTTLE ONE (09:04)
[2018-05-20] MEDS ORDERED: ACETAMINOPHEN 325MG TABLET PO PRN (10:00)
[2018-05-20] MEDS ORDERED: CLONIDINE 0.1MG TABLET PO PRN (10:00)
[2018-05-20] MEDS ORDERED: IPRATROPIUM/ALBUTEROL 0.5-3(2.5)MG/3ML NEB INH PRN (10:00)
[2018-05-20] MEDS ORDERED: MAGNESIUM/ALUMINUM HYDROXIDE/SIMETHICONE 30ML UDC PO PRN (10:00)
[2018-05-20] MEDS ORDERED: NITROGLYCERIN 0.4MG TABLET SL SL PRN (10:00)
[2018-05-20] MEDS ORDERED: GUAIFENESIN 200MG/10ML SUGAR FREE UDC PO PRN (10:00)
[2018-05-20] MEDS ORDERED: ZOLPIDEM TARTRATE 5MG TABLET PO PRN (10:00)
[2018-05-20] MEDS ORDERED: LORAZEPAM 0.5MG TABLET PO PRN (10:00)
[2018-05-20] MEDS ORDERED: NA PHOS,M-B/NA PHOS,DI-BA ENEMA 118ML PR PRN (10:00)
[2018-05-20] MEDS ORDERED: TRAMADOL 50MG TABLET PO PRN (10:00)
[2018-05-20] MEDS ORDERED: MORPHINE SULFATE 10 MG/ML CPJ IV PRN (10:00)
[2018-05-20] MEDS: FUROSEMIDE 40MG/4ML VIAL IVP SCH ×2 (10:07→21:24)
[2018-05-20] MEDS ORDERED: FUROSEMIDE 40MG/4ML VIAL IVP NR (10:45)
[2018-05-20] MEDS: PROPOFOL 10MG/ML 100ML 100 ML IV PRN ×2 (11:12→15:37)
[2018-05-20] MEDS ORDERED: SUCRALFATE 1 G/10 ML UDC PO SCH (11:30)
[2018-05-20] MEDS: ENOXAPARIN 40MG/0.4ML SYR SUBCUT SCH ×2 (11:35→18:28)
[2018-05-20] MEDS ORDERED: CEFTRIAXONE 1 G PREMIX 50 ML IV SCH (12:00)
[2018-05-20] MEDS ORDERED: AZITHROMYCIN 500 MG in DEXT 5% WATER 250 ML IV SCH (12:00)
[2018-05-20] MEDS ORDERED: KCL 20MEQ/100ML PREMIX 100 ML IV NR (12:00)
[2018-05-20] MEDS: IPRATROPIUM/ALBUTEROL 0.5-3(2.5)MG/3ML NEB HHN SCH ×3 (12:19→20:18)
[2018-05-20] MEDS: FENTANYL CITRATE/PF 500 MCG in SODIUM CHLORIDE 0.9% 40 ML IV PRN ×2 (12:23→16:42)
[2018-05-20] MEDS: MIDAZOLAM HCL 100 MG in DEXT 5% WATER 80 ML IV PRN (12:39)
[2018-05-20 12:55] LABS: BG BASE EXCESS -2.1 mmol/L (-2.0-2.0); BG CARBOXYHEMOGLOBIN 0.5 % (0.5-1.5); BG DEOXYHEMOGLOBIN 0.1 % (0.0-5.0); BG FRACTION INSPIRED OXYGEN 100; BG HCO3 ACT 20.8 mmol/L (22.0-26.0); BG METHEMOGLOBIN 0.2 % (0.0-1.5); BG OXYGEN SATURATION 99.9 % (92.0-98.5); BG OXYHEMOGLOBIN 99.2 % (94.0-97.0); BG PCO2 30.8 mmHg (35.0-45.0); BG PH 7.448 (7.350-7.450); BG SAMPLE SITE RIGHT BRACHIAL; BG TIDAL VOLUME(mL) 450 mL; BG TOTAL HEMOGLOBIN 13.8 g/dL (12.0-18.0); BG VENT MODE VENT - A/C; BG VENT RATE 14 set
[2018-05-20] MEDS ORDERED: LEVOFLOXACIN 500MG PREMIX 100 ML IV SCH (13:00)
[2018-05-20] MEDS ORDERED: MILRINONE 20MG-DEXT 5% PREMIX 100 ML IV SCH ×2 (13:00→14:00)
[2018-05-20 13:56] LABS: UCG SCREEN NEGATIVE
[2018-05-20] MEDS ORDERED: SUCCINYLCHOLINE CHLORIDE 200MG/10ML IV ONE (14:34)
[2018-05-20] MEDS ORDERED: ETOMIDATE 2MG/ML 10ML VIAL IV ONE (14:34)
[2018-05-20] MEDS ORDERED: PHENYLEPHRINE 20 MG in DEXT 5% WATER 248 ML IV PRN (15:15)
[2018-05-20] MEDS: SPIRONOLACTONE 25MG TABLET PO SCH (18:27)
[2018-05-20] MEDS: PHENYLEPHRINE 40 MG in DEXT 5% WATER 246 ML IV PRN ×2 (18:45→23:08)
[2018-05-20] MEDS: LEVETIRACETAM 500MG TABLET PO SCH (20:40)
[2018-05-20] MEDS: METOPROLOL TARTRATE 25MG TABLET PO SCH (20:40)
[2018-05-20] MEDS: ASCORBIC ACID 500 MG TABLET PO SCH (20:40)
[2018-05-20] MEDS ORDERED: VASOPRESSIN 10 UNIT in SODIUM CHLORIDE 0.9% 99.5 ML IV PRN (21:45)
[2018-05-20] MEDS ORDERED: NOREPINEPHRINE 16 MG in DEXT 5% WATER 234 ML IV PRN (21:45)
[2018-05-20] MEDS: PIPERACILLIN/TAZ 3.375G PREMIX 50 ML IV SCH (22:37)
[2018-05-21] VITALS (95 sets, daily range): BP systolic 81–135; BP diastolic 39–89
[2018-05-21] MEDS ORDERED: VANCOMYCIN 1 G PREMIX 200 ML IV NR
[2018-05-21] MEDS ORDERED: PIPERACILLIN/TAZ 2.25G PREMIX 50 ML IV SCH
[2018-05-21] MEDS: FENTANYL CITRATE/PF 500 MCG in SODIUM CHLORIDE 0.9% 40 ML IV PRN ×3 (00:20→20:33)
[2018-05-21] MEDS: MIDAZOLAM HCL 100 MG in DEXT 5% WATER 80 ML IV PRN (00:22)
[2018-05-21 00:46] LABS: BASOPHILS % 0.2 % (0.0-2.0); EOSINOPHILS % 0.1 % (0.0-5.0); HEMOGLOBIN. 12.8 g/dL (12.0-16.0); LYMPHOCYTES % 10.9 % (20.0-50.0); MEAN CORPUSCULAR VOLUME 82.4 fL (81.0-99.0); MEAN PLATELET VOLUME 8.5 fl (7.4-10.4); MONOCYTES % 3.9 % (2.0-8.0); NEUTROPHILS % 84.9 % (40.0-76.0); PLATELET 355 x1000/uL (130-400); RED BLOOD CELL COUNT 4.73 mill/uL (4.2-5.4); RED CELL DISTRIBUTION WIDTH 14.3 % (11.6-14.6)
[2018-05-21] MEDS: PROPOFOL 10MG/ML 100ML 100 ML IV PRN (01:11)
[2018-05-21] MEDS: IPRATROPIUM/ALBUTEROL 0.5-3(2.5)MG/3ML NEB HHN SCH ×6 (01:45→20:06)
[2018-05-21] MEDS: PHENYLEPHRINE 80 MG in DEXT 5% WATER 492 ML IV PRN ×2 (03:02→14:04)
[2018-05-21 05:30] LABS: BASOPHILS % 0.3 % (0.0-2.0); EOSINOPHILS % 0.8 % (0.0-5.0); HEMOGLOBIN. 12.6 g/dL (12.0-16.0); LYMPHOCYTES % 14.3 % (20.0-50.0); MEAN CORPUSCULAR HEMOGLOBIN 26.8 pg (28.0-32.0); MEAN CORPUSCULAR VOLUME 82.8 fL (81.0-99.0); MEAN PLATELET VOLUME 8.9 fl (7.4-10.4); NEUTROPHILS % 77.6 % (40.0-76.0); PLATELET 313 x1000/uL (130-400); RED BLOOD CELL COUNT 4.71 mill/uL (4.2-5.4); RED CELL DISTRIBUTION WIDTH 14.6 % (11.6-14.6)
[2018-05-21 05:34] LABS: CHLORIDE 103 mEq/L (98-107)
[2018-05-21] MEDS: SPIRONOLACTONE 25MG TABLET PO SCH ×2 (05:40→18:19)
[2018-05-21] MEDS: ENOXAPARIN 40MG/0.4ML SYR SUBCUT SCH ×2 (05:40→18:20)
[2018-05-21] MEDS: PIPERACILLIN/TAZ 3.375G PREMIX 50 ML IV SCH ×3 (05:40→22:23)
[2018-05-21 05:41] LABS: LDL CHOLESTEROL 93 mg/dL (5-100)
[2018-05-21 05:42] LABS: HDL CHOLESTEROL 56 mg/dL (40-59)
[2018-05-21 05:43] LABS: CREATINE KINASE 697 IU/L (26-192)
[2018-05-21 05:47] LABS: CREATINE KINASE MB FRACTION 7.2 ng/mL (0.5-3.6)
[2018-05-21 08:17] LABS: BG BASE EXCESS 0.1 mmol/L (-2.0-2.0); BG CARBOXYHEMOGLOBIN 0.2 % (0.5-1.5); BG FRACTION INSPIRED OXYGEN 40; BG HCO3 ACT 24.3 mmol/L (22.0-26.0); BG METHEMOGLOBIN 0.4 % (0.0-1.5); BG OXYHEMOGLOBIN 98.4 % (94.0-97.0); BG PH 7.423 (7.350-7.450); BG PO2 177.6 mmHg (75.0-100.0); BG SAMPLE SITE LEFT RADIAL; BG TIDAL VOLUME(mL) 450 mL; BG TOTAL HEMOGLOBIN 13.3 g/dL (12.0-18.0); BG VENT MODE VENT - A/C; BG VENT RATE 14 set
[2018-05-21] MEDS: METOPROLOL TARTRATE 25MG TABLET PO SCH ×2 (08:32→21:11)
[2018-05-21] MEDS: VANCOMYCIN 1 G PREMIX 200 ML IV SCH ×2 (08:46→15:04)
[2018-05-21] MEDS: ASCORBIC ACID 500 MG TABLET PO SCH ×2 (08:46→21:00)
[2018-05-21] MEDS: PANTOPRAZOLE SODIUM 40 MG/VIAL IV SCH (08:46)
[2018-05-21] MEDS: LEVETIRACETAM 500MG TABLET PO SCH ×2 (08:46→21:11)
[2018-05-21] MEDS ORDERED: KCL 20MEQ/100ML PREMIX 100 ML IV SCH (09:00)
[2018-05-21] MEDS ORDERED: ASPIRIN 325MG EC TABLET PO SCH (09:00)
[2018-05-21] MEDS: ASPIRIN 325MG TABLET PO SCH (09:00)
[2018-05-21] MEDS: FUROSEMIDE 40MG/4ML VIAL IVP SCH ×2 (09:00→22:23)
[2018-05-21] MEDS ORDERED: LIDOCAINE HCL/PF 1% 2ML VIAL ONE (12:10)
[2018-05-21] MEDS ORDERED: PROPOFOL 10MG/ML 100ML 100 ML IV PRN (14:30)
[2018-05-21] MEDS: POTASSIUM CHLORIDE 20MEQ/PACKET PO SCH (18:19)
[2018-05-22] VITALS (81 sets, daily range): BP systolic 82–164; BP diastolic 43–93
[2018-05-22] MEDS: VANCOMYCIN 1 G PREMIX 200 ML IV SCH (00:08)
[2018-05-22] MEDS: IPRATROPIUM/ALBUTEROL 0.5-3(2.5)MG/3ML NEB HHN SCH ×6 (00:23→20:02)
[2018-05-22] MEDS: MORPHINE SULFATE 10 MG/ML CPJ IV PRN ×5 (00:39→22:12)
[2018-05-22] MEDS: DIPHENHYDRAMINE 50MG/ML VIAL IV PRN ×3 (00:39→12:09)
[2018-05-22] MEDS: PHENYLEPHRINE 80 MG in DEXT 5% WATER 492 ML IV PRN (03:58)
[2018-05-22] MEDS: ENOXAPARIN 40MG/0.4ML SYR SUBCUT SCH ×2 (05:36→18:23)
[2018-05-22] MEDS: PIPERACILLIN/TAZ 3.375G PREMIX 50 ML IV SCH ×3 (05:36→22:13)
[2018-05-22] MEDS: SPIRONOLACTONE 25MG TABLET PO SCH (05:36)
[2018-05-22] MEDS: LORAZEPAM 1MG TABLET PO PRN ×2 (07:50→18:22)
[2018-05-22] MEDS: PANTOPRAZOLE SODIUM 40 MG/VIAL IV SCH (08:09)
[2018-05-22] MEDS: ASCORBIC ACID 500 MG TABLET PO SCH ×2 (08:09→21:39)
[2018-05-22] MEDS: LEVETIRACETAM 500MG TABLET PO SCH ×2 (08:09→21:00)
[2018-05-22] MEDS: ASPIRIN 325MG TABLET PO SCH (08:09)
[2018-05-22] MEDS: METOPROLOL TARTRATE 25MG TABLET PO SCH (08:10)
[2018-05-22] MEDS: POTASSIUM CHLORIDE 20MEQ/PACKET PO SCH ×2 (08:10→16:22)
[2018-05-22] MEDS: FUROSEMIDE 40MG/4ML VIAL IVP SCH (08:43)
[2018-05-22 10:17] LABS: BG BASE EXCESS -2.3 mmol/L (-2.0-2.0); BG CARBOXYHEMOGLOBIN 0.3 % (0.5-1.5); BG DEOXYHEMOGLOBIN 0.8 % (0.0-5.0); BG FRACTION INSPIRED OXYGEN 32; BG HCO3 ACT 22.6 mmol/L (22.0-26.0); BG METHEMOGLOBIN 0.3 % (0.0-1.5); BG OXYGEN SATURATION 99.2 % (92.0-98.5); BG OXYHEMOGLOBIN 98.6 % (94.0-97.0); BG PCO2 39.1 mmHg (35.0-45.0); BG PH 7.379 (7.350-7.450); BG PO2 191.3 mmHg (75.0-100.0); BG SAMPLE SITE RIGHT BRACHIAL; BG TOTAL HEMOGLOBIN 13.1 g/dL (12.0-18.0); BG VENT MODE NASAL CANNULA
[2018-05-22] MEDS: DIPHENHYDRAMINE 25MG CAPSULE PO PRN ×2 (16:22→22:12)
[2018-05-22] MEDS: DOCUSATE SODIUM 100MG CAPSULE PO PRN (16:22)
[2018-05-23] VITALS (69 sets, daily range): BP systolic 87–197; BP diastolic 51–97
[2018-05-23] MEDS: IPRATROPIUM/ALBUTEROL 0.5-3(2.5)MG/3ML NEB HHN SCH ×6 (00:19→20:35)
[2018-05-23] MEDS: PIPERACILLIN/TAZ 3.375G PREMIX 50 ML IV SCH ×3 (06:00→21:13)
[2018-05-23] MEDS ORDERED: ENOXAPARIN 60MG/0.6ML SYR SUBCUT SCH (07:00)
[2018-05-23] MEDS: MORPHINE SULFATE 10 MG/ML CPJ IV PRN ×3 (08:57→22:25)
[2018-05-23] MEDS: DIPHENHYDRAMINE 25MG CAPSULE PO PRN ×3 (08:58→22:22)
[2018-05-23] MEDS: PANTOPRAZOLE SODIUM 40 MG/VIAL IV SCH (08:58)
[2018-05-23] MEDS: CARVEDILOL 3.125 MG TABLET PO SCH ×2 (08:59→21:13)
[2018-05-23] MEDS: ASPIRIN 81MG TABLET PO SCH (08:59)
[2018-05-23] MEDS: LEVETIRACETAM 500MG TABLET PO SCH ×3 (08:59→21:13)
[2018-05-23] MEDS: ASCORBIC ACID 500 MG TABLET PO SCH ×2 (08:59→21:13)
[2018-05-23] MEDS ORDERED: SPIRONOLACTONE 25MG TABLET PO SCH (09:00)
[2018-05-23] MEDS ORDERED: FUROSEMIDE 40MG/4ML VIAL IVP SCH (09:00)
[2018-05-23] MEDS: POTASSIUM CHLORIDE 20MEQ/PACKET PO SCH (09:09)
[2018-05-23 12:35] LABS: PHOSPHORUS 4.3 mg/dL (2.5-4.9)
[2018-05-23] MEDS: ONDANSETRON HCL 4MG/2ML INJ IV PRN (12:48)
[2018-05-23] MEDS ORDERED: SODIUM CHLORIDE 0.9% 500 ML IV ONE (14:30)
[2018-05-23] MEDS: SODIUM CHLORIDE 0.9% 1,000 ML IV SCH (15:50)
[2018-05-23] MEDS: DOCUSATE SODIUM 100MG CAPSULE PO PRN (15:51)
[2018-05-23] MEDS ORDERED: LIDOCAINE HCL/PF 1% 2ML VIAL ONE (15:54)
[2018-05-23] MEDS: LORAZEPAM 1MG TABLET PO PRN (16:24)
[2018-05-24] VITALS (48 sets, daily range): BP systolic 69–148; BP diastolic 34–105
[2018-05-24] MEDS: IPRATROPIUM/ALBUTEROL 0.5-3(2.5)MG/3ML NEB HHN SCH ×6 (00:25→20:47)
[2018-05-24] MEDS: MORPHINE SULFATE 10 MG/ML CPJ IV PRN ×4 (02:59→22:30)
[2018-05-24 05:55] LABS: CHLORIDE 101 mEq/L (98-107)
[2018-05-24] MEDS: SODIUM CHLORIDE 0.9% 1,000 ML IV SCH ×2 (07:07→18:24)
[2018-05-24] MEDS: PIPERACILLIN/TAZ 3.375G PREMIX 50 ML IV SCH ×2 (07:07→13:42)
[2018-05-24] MEDS: PANTOPRAZOLE SODIUM 40 MG/VIAL IV SCH (08:57)
[2018-05-24] MEDS: LORAZEPAM 1MG TABLET PO PRN ×3 (08:58→22:22)
[2018-05-24] MEDS: ASPIRIN 81MG TABLET PO SCH (08:58)
[2018-05-24] MEDS: DIPHENHYDRAMINE 25MG CAPSULE PO PRN ×3 (08:58→22:22)
[2018-05-24] MEDS: ASCORBIC ACID 500 MG TABLET PO SCH ×2 (08:58→21:09)
[2018-05-24] MEDS: CARVEDILOL 3.125 MG TABLET PO SCH ×2 (08:58→21:09)
[2018-05-24] MEDS: LEVETIRACETAM 500MG TABLET PO SCH ×2 (09:00→21:09)
[2018-05-24] MEDS: ENOXAPARIN 60MG/0.6ML SYR SUBCUT SCH (09:02)
[2018-05-24 11:19] LABS: BG BASE EXCESS 0.3 mmol/L (-2.0-2.0); BG CARBOXYHEMOGLOBIN 0.3 % (0.5-1.5); BG FRACTION INSPIRED OXYGEN 21; BG HCO3 ACT 25.4 mmol/L (22.0-26.0); BG METHEMOGLOBIN 0.2 % (0.0-1.5); BG OXYHEMOGLOBIN 96.5 % (94.0-97.0); BG PH 7.389 (7.350-7.450); BG PO2 95.5 mmHg (75.0-100.0); BG SAMPLE SITE RIGHT RADIAL; BG TOTAL HEMOGLOBIN 12.2 g/dL (12.0-18.0); BG VENT MODE ROOM AIR
[2018-05-24] MEDS ORDERED: VANCOMYCIN 1 G PREMIX 200 ML IV SCH (12:00)
[2018-05-24] MEDS: MULTIVITAMINS,THER W-MINERALS TABLET PO SCH (13:42)
[2018-05-24] MEDS: THIAMINE HCL 100MG TABLET PO SCH (13:42)
[2018-05-24] MEDS: ONDANSETRON HCL 4MG/2ML INJ IV PRN (13:59)
[2018-05-24 14:14] LABS: HEMATOCRIT 38.2 % (36.0-48.0); HEMOGLOBIN 12.5 g/dL (12.0-16.0); MEAN CORPUSCULAR HEMOGLOBIN 27.4 pg (28.0-32.0); MEAN CORPUSCULAR VOLUME 83.7 fL (81.0-99.0); RED BLOOD CELL COUNT 4.57 mill/uL (4.2-5.4); RED CELL DISTRIBUTION WIDTH 14.1 % (11.6-14.6)
[2018-05-24 14:15] LABS: PLATELET 275 x1000/uL (130-400)
[2018-05-25] VITALS (9 sets, daily range): BP systolic 112–131; BP diastolic 66–93
[2018-05-25] MEDS: PIPERACILLIN/TAZ 3.375G PREMIX 50 ML IV SCH ×2 (00:43→05:04)
[2018-05-25] MEDS: IPRATROPIUM/ALBUTEROL 0.5-3(2.5)MG/3ML NEB HHN SCH ×6 (01:21→20:25)
[2018-05-25] MEDS: MORPHINE SULFATE 10 MG/ML CPJ IV PRN ×2 (03:16→08:20)
[2018-05-25] MEDS: LEVETIRACETAM 500MG TABLET PO SCH ×2 (09:34→21:05)
[2018-05-25] MEDS: ASPIRIN 81MG TABLET PO SCH (09:34)
[2018-05-25] MEDS: CARVEDILOL 3.125 MG TABLET PO SCH (09:35)
[2018-05-25] MEDS: ASCORBIC ACID 500 MG TABLET PO SCH ×2 (09:35→21:05)
[2018-05-25] MEDS: ENOXAPARIN 60MG/0.6ML SYR SUBCUT SCH (09:38)
[2018-05-25] MEDS: THIAMINE HCL 100MG TABLET PO SCH (09:43)
[2018-05-25] MEDS: PANTOPRAZOLE SODIUM 40 MG/VIAL IV SCH (09:43)
[2018-05-25] MEDS: MULTIVITAMINS,THER W-MINERALS TABLET PO SCH (09:43)
[2018-05-25] MEDS: SODIUM CHLORIDE 0.9% 1,000 ML IV SCH ×2 (12:29→21:09)
[2018-05-25] MEDS: TRAMADOL 50MG TABLET PO PRN ×2 (12:32→19:05)
[2018-05-25] MEDS: PIPERACILLIN/TAZ 2.25G PREMIX 50 ML IV SCH ×2 (13:21→19:10)
[2018-05-25] MEDS: DIPHENHYDRAMINE 25MG CAPSULE PO PRN (21:04)
[2018-05-25] MEDS: CARVEDILOL 6.25 MG TABLET PO SCH (21:05)
[2018-05-25] MEDS: FLUTICASONE PROPIONATE 50MCG/SPRAY BOTTLE BOTHNSTRLS SCH (21:10)
[2018-05-26] VITALS: BP 101/72
[2018-05-26] MEDS: PIPERACILLIN/TAZ 2.25G PREMIX 50 ML IV SCH ×3 (00:56→12:41)
[2018-05-26] MEDS: IPRATROPIUM/ALBUTEROL 0.5-3(2.5)MG/3ML NEB HHN SCH ×3 (01:32→12:56)
[2018-05-26 04:00] VITALS: BP 111/78
[2018-05-26 08:48] VITALS: BP 128/91
[2018-05-26] MEDS ORDERED: FAMOTIDINE 20MG/2ML VIAL IV SCH (09:00)
[2018-05-26] MEDS: MULTIVITAMINS,THER W-MINERALS TABLET PO SCH (10:01)
[2018-05-26] MEDS: ASCORBIC ACID 500 MG TABLET PO SCH (10:01)
[2018-05-26] MEDS: LEVETIRACETAM 500MG TABLET PO SCH (10:01)
[2018-05-26] MEDS: THIAMINE HCL 100MG TABLET PO SCH (10:02)
[2018-05-26] MEDS: ASPIRIN 81MG TABLET PO SCH (10:02)
[2018-05-26] MEDS: CARVEDILOL 6.25 MG TABLET PO SCH (10:02)
[2018-05-26] MEDS: TRAMADOL 50MG TABLET PO PRN (10:03)
[2018-05-26] MEDS: SODIUM CHLORIDE 0.9% 1,000 ML IV SCH (10:08)
[2018-05-26] MEDS: ENOXAPARIN 60MG/0.6ML SYR SUBCUT SCH (10:15)
[2018-05-26] MEDS: FLUTICASONE PROPIONATE 50MCG/SPRAY BOTTLE BOTHNSTRLS SCH (10:15)
[2018-05-26 10:23] LABS: BASOPHILS % 0.6 % (0.0-2.0); EOSINOPHILS % 2.3 % (0.0-5.0); HEMATOCRIT. 32.6 % (36.0-48.0); HEMOGLOBIN. 10.8 g/dL (12.0-16.0); MEAN CORPUSCULAR HEMOGLOBIN 27.1 pg (28.0-32.0); MEAN PLATELET VOLUME 8.4 fl (7.4-10.4); MONOCYTES % 8.4 % (2.0-8.0); NEUTROPHILS % 75.7 % (40.0-76.0); PLATELET 330 x1000/uL (130-400); RED BLOOD CELL COUNT 3.97 mill/uL (4.2-5.4)
[2018-05-26 10:29] LABS: CHLORIDE 102 mEq/L (98-107)
[2018-05-26 10:38] LABS: CREATINE KINASE 100 IU/L (26-192)
[2018-05-26 13:19] VITALS: BP 111/77
[2018-05-26 15:30] VITALS: BP 111/77
[2018-05-26] MEDS ORDERED: ENOXAPARIN 60MG/0.6ML SYR SUBCUT SCH (21:00)
[2018-05-27 07:14] LABS: HIV SCREEN 4G Non Reactive (Non Reactive)
[2018-05-28 09:06] LABS: COMPLEMENT C3 132 mg/dL (82-167)
[2018-05-30 09:13] LABS: GLOMERULAR BASEMENT MEMB AB 3 units (0-20)
[2018-05-30 10:06] LABS: ANA IFA Negative (.)
[2018-05-30 13:09] LABS: ANTI-MYELOPEROXIDASE AB < 9.0 U/mL (0.0-9.0); ANTI-PROTEINASE 3 ABS < 3.5 U/mL (0.0-3.5)
[2018-05-30 15:06] LABS: ATYPICAL P-ANCA <1:20 titer (Neg:<1:20); CYTOPLASMIC C-ANCA <1:20 titer (Neg:<1:20); PERINUCLEAR P-ANCA <1:20 titer (Neg:<1:20)
[2018-05-31 13:06] LABS: HGB A 95.5 % (96.4-98.8); HGB A2 2.2 % (1.8-3.2); HGB F 2.3 % (0.0-2.0); HGB SOLUBILITY Negative (Negative)
== END 2018-05-26 16:43 | disposition home or self-care (01) | DRG 720 ==
LOC: ER 04:11 → MICUSO 05:09 → EDBEDREQTM 05:10 → EDBEDREQ 05:10 → ENRESERV 06:54 → CANRESERV 06:54 → EDBEDREQSVC 08:22 → EDBEDREQ 08:32 → EDBEDREQSVC 08:37 → CANRESERV 08:58 → ENRESERV 08:58 → EDBEDREQ 09:12 → 7WST 05-24 22:08
PROVIDERS: ADMIT Internal Medicine; ATTEND Internal Medicine
PROC: 5A1945Z Respiratory Ventilation, 24-96 Consecutive Hours (ICD-10-PCS; principal; 2018-05-20)
PROC: 0BH17EZ Insertion of Endotracheal Airway into Trachea, Via Natural or Artificial Opening (ICD-10-PCS; 2018-05-20)
PROC: 02HV33Z Insertion of Infusion Device into Superior Vena Cava, Percutaneous Approach (ICD-10-PCS; 2018-05-20)
PROC: B548ZZA Ultrasonography of Superior Vena Cava, Guidance (ICD-10-PCS; 2018-05-20)
DX: A41.9 Sepsis, unspecified organism (principal); I21.4 Non-ST elevation (NSTEMI) myocardial infarction; J96.01 Acute respiratory failure with hypoxia; E43 Unspecified severe protein-calorie malnutrition; I50.43 Acute on chronic combined systolic (congestive) and diastolic (congestive) heart failure; I42.0 Dilated cardiomyopathy; K85.90 Acute pancreatitis without necrosis or infection, unspecified; E83.51 Hypocalcemia; I44.7 Left bundle-branch block, unspecified; N39.0 Urinary tract infection, site not specified; E83.52 Hypercalcemia; F12.90 Cannabis use, unspecified, uncomplicated; G40.909 Epilepsy, unspecified, not intractable, without status epilepticus; G43.909 Migraine, unspecified, not intractable, without status migrainosus; J45.909 Unspecified asthma, uncomplicated; K29.70 Gastritis, unspecified, without bleeding; E05.90 Thyrotoxicosis, unspecified without thyrotoxic crisis or storm; K80.20 Calculus of gallbladder without cholecystitis without obstruction; N14.1 Nephropathy induced by other drugs, medicaments and biological substances; N18.9 Chronic kidney disease, unspecified; Z77.22 Contact with and (suspected) exposure to environmental tobacco smoke (acute) (chronic); I13.0 Hypertensive heart and chronic kidney disease with heart failure and stage 1 through stage 4 chronic kidney disease, or unspecified chronic kidney disease; R73.9 Hyperglycemia, unspecified; T50.8X5A Adverse effect of diagnostic agents, initial encounter; T50.2X5A Adverse effect of carbonic-anhydrase inhibitors, benzothiadiazides and other diuretics, initial encounter; Y92.89 Other specified places as the place of occurrence of the external cause; Z88.9 Allergy status to unspecified drugs, medicaments and biological substances; Z79.899 Other long term (current) drug therapy; Z82.49 Family history of ischemic heart disease and other diseases of the circulatory system; I25.2 Old myocardial infarction; Z90.49 Acquired absence of other specified parts of digestive tract; Z91.14 Patient's other noncompliance with medication regimen; Z68.23 Body mass index [BMI] 23.0-23.9, adult
CPT/HCPCS: 31500; 36415; 36569; 36600; 71045; 71250; 71275; 74177; 76700; 76937; 80048; 80061; 80076; 80202; 80305; 81025; 82375; 82550; 82553; 82787; 82805; 83021; 83036; 83520; 83735; 83880; 84100; 84443; 84478; 84484; 85007; 85027; 85660; 86140; 86160; 86256; 87070; 87389; 87804; 93005; 93306; 94002; 94003; 94640; 96365; 96367; 96368; 96375; 99285; C1725; C9113; J0330; J1200; J1630; J1650; J1940; J1956; J2250; J2260; J2270; J2370; J2405; J2543; J2704; J3010; J3370; J3480; J3490; J7030; J7040; J7050; J7060; J7620; Q0163; Q9967

== ENCOUNTER 2018-05-27 13:12 | Inpatient (IN) | payer MEDICAID ==
[~2018-05-27] VITALS: Ht 152.4 cm; Wt 59.0 kg
[2018-05-27] MEDS ORDERED: SODIUM CHLORIDE 0.9% 1,000 ML IV ONE ×2 (14:36→17:16)
[2018-05-27] MEDS ORDERED: ONDANSETRON HCL 4MG/2ML INJ IV STA ×2 (14:36→17:16)
[2018-05-27] MEDS ORDERED: FAMOTIDINE 20MG/2ML VIAL IV ONE (15:00)
[2018-05-27] MEDS ORDERED: DIPHENHYDRAMINE 50MG/ML VIAL IV ONE ×2 (15:00→17:30)
[2018-05-27] MEDS ORDERED: MORPHINE SULFATE 10 MG/ML CPJ IV ONE ×2 (15:00→17:30)
[2018-05-27] MEDS ORDERED: VISCOUS LIDOCAINE 2% 15 ML UDC PO STA (20:13)
[2018-05-27] MEDS ORDERED: HYDROMORPHONE HCL/PF 2MG/ML CPJ IV ONE (20:15)
[2018-05-27] MEDS ORDERED: MAGNESIUM/ALUMINUM HYDROXIDE/SIMETHICONE 30ML UDC PO ONE (20:15)
[2018-05-27 20:39] LABS: *AMPHETAMINES SCREEN URINE NEGATIVE (NEGATIVE); *BARBITURATES SCREEN URINE NEGATIVE (NEGATIVE); *BENZODIAZEPINES SCREEN URINE NEGATIVE (NEGATIVE); *COCAINE SCREEN URINE NEGATIVE (NEGATIVE); METHADONE URINE SCREEN NEGATIVE (NEGATIVE)
[2018-05-27 20:40] LABS: PHENCYCLIDINE URINE SCREEN NEGATIVE (NEGATIVE)
[2018-05-27] MEDS ORDERED: ONDANSETRON HCL 4MG/2ML INJ IV ONE (20:45)
[2018-05-27] MEDS ORDERED: DIATR MEGLU/DIATRIZOATE SOLN 30ML PO ONE (20:45)
[2018-05-27 20:46] LABS: CANNABINOID URINE SCREEN PRESUMTIVE POSITIVE (NEGATIVE); OPIATES URINE SCREEN PRESUMTIVE POSITIVE (NEGATIVE)
[2018-05-27] MEDS ORDERED: DIATR MEGLU/DIATRIZOATE SOLN 30ML ONE (21:10)
[2018-05-27 23:43] LABS: HEMATOCRIT. 30.7 % (36.0-48.0); HEMOGLOBIN. 10.2 g/dL (12.0-16.0); MEAN CORPUSCULAR HEMOGLOBIN 27.1 pg (28.0-32.0); MEAN CORPUSCULAR VOLUME 81.3 fL (81.0-99.0); MEAN PLATELET VOLUME 8.2 fl (7.4-10.4); PLATELET 377 x1000/uL (130-400); RED BLOOD CELL COUNT 3.77 mill/uL (4.2-5.4); RED CELL DISTRIBUTION WIDTH 14.2 % (11.6-14.6)
[2018-05-27 23:51] LABS: CHLORIDE 108 mEq/L (98-107)
[2018-05-27 23:55] LABS: ETHANOL BLOOD < 10 mg/dL
[2018-05-27 23:57] LABS: INR 1.1; PARTIAL THROMBOPLASTIN TIME 39.9 sec (23.4-31.0); PROTHROMBIN TIME 10.7 sec (9.1-11.1)
[2018-05-28 00:15] LABS: HCG SCREEN NEGATIVE
[2018-05-28 01:02] LABS: ATYPICAL LYMPHOCYTES 1; PLATELET ESTIMATE NORMAL
[2018-05-28 03:01] LABS: CLARITY URINE TURBID (CLEAR); COLOR URINE YELLOW (YELLOW); KETONES URINE 1+ (NEGATIVE); LEUKOCYTE ESTERASE URINE 1+ (NEGATIVE); NITRITE URINE NEGATIVE (NEGATIVE); OCCULT BLOOD URINE NEGATIVE (NEGATIVE); PROTEIN URINE NEGATIVE (NEGATIVE); SPECIFIC GRAVITY URINE 1.014 (1.005-1.030); UROBILINOGEN URINE 0.2 E.U./dL (0.2-1.0)
[2018-05-28 06:35] VITALS: BP 126/91
[2018-05-28 08:00] VITALS: BP 128/80
[2018-05-28] MEDS ORDERED: MAGNESIUM/ALUMINUM HYDROXIDE/SIMETHICONE 30ML UDC PO PRN (08:15)
[2018-05-28] MEDS ORDERED: CLONIDINE 0.1MG TABLET PO PRN (08:15)
[2018-05-28] MEDS ORDERED: IPRATROPIUM/ALBUTEROL 0.5-3(2.5)MG/3ML NEB INH PRN (08:15)
[2018-05-28] MEDS ORDERED: ONDANSETRON HCL 4MG/2ML INJ IV PRN (08:15)
[2018-05-28] MEDS ORDERED: NITROGLYCERIN 0.4MG TABLET SL SL PRN (08:15)
[2018-05-28] MEDS ORDERED: NA PHOS,M-B/NA PHOS,DI-BA ENEMA 118ML PR PRN (09:00)
[2018-05-28] MEDS ORDERED: DOCUSATE SODIUM 100MG CAPSULE PO PRN (09:00)
[2018-05-28] MEDS: LEVETIRACETAM 500MG TABLET PO SCH ×2 (09:39→21:20)
[2018-05-28] MEDS: ASPIRIN 325MG EC TABLET PO SCH (09:39)
[2018-05-28] MEDS: ENOXAPARIN 40MG/0.4ML SYR SUBCUT SCH (09:39)
[2018-05-28] MEDS: FAMOTIDINE 20MG TABLET PO SCH (09:39)
[2018-05-28] MEDS: TRAMADOL 50MG TABLET PO PRN ×2 (09:40→19:10)
[2018-05-28] MEDS: METOCLOPRAMIDE HCL 5MG TABLET PO SCH ×3 (10:18→21:20)
[2018-05-28] MEDS: LORAZEPAM 0.5MG TABLET PO PRN ×2 (10:46→16:37)
[2018-05-28] MEDS ORDERED: SUCRALFATE 1 G/10 ML UDC PO SCH (11:45)
[2018-05-28 12:13] VITALS: BP 94/55
[2018-05-28] MEDS ORDERED: OMEP40CA34 MT (12:18)
[2018-05-28] MEDS ORDERED: [UNRECOGNIZED DRUG - CODE] MT (12:19)
[2018-05-28] MEDS: SUCRALFATE 1 G/10 ML UDC PO SCH ×3 (13:07→21:19)
[2018-05-28 16:00] VITALS: BP 120/88
[2018-05-28] MEDS: CEFTRIAXONE 1 G PREMIX 50 ML IV SCH (16:50)
[2018-05-28 20:00] VITALS: BP 109/78
[2018-05-28] MEDS ORDERED: ZOLPIDEM TARTRATE 5MG TABLET PO PRN (21:00)
[2018-05-29] VITALS: BP 108/79
[2018-05-29 01:36] LABS: CREATINE KINASE MB FRACTION 1.9 ng/mL (0.5-3.6)
[2018-05-29] MEDS: LORAZEPAM 0.5MG TABLET PO PRN ×3 (05:05→17:48)
[2018-05-29 06:00] VITALS: BP 115/88
[2018-05-29] MEDS: METOCLOPRAMIDE HCL 5MG TABLET PO SCH ×4 (06:09→21:09)
[2018-05-29] MEDS: SUCRALFATE 1 G/10 ML UDC PO SCH ×4 (06:09→21:09)
[2018-05-29 08:00] VITALS: BP 118/84
[2018-05-29] MEDS: FAMOTIDINE 20MG TABLET PO SCH (08:38)
[2018-05-29] MEDS: ENOXAPARIN 40MG/0.4ML SYR SUBCUT SCH (08:38)
[2018-05-29] MEDS: ASPIRIN 325MG EC TABLET PO SCH (08:38)
[2018-05-29] MEDS: ACETAMINOPHEN 325MG TABLET PO PRN ×2 (08:39→21:37)
[2018-05-29] MEDS: LEVETIRACETAM 500MG TABLET PO SCH ×2 (09:50→21:09)
[2018-05-29 12:00] VITALS: BP 115/79
[2018-05-29] MEDS: TRAMADOL 50MG TABLET PO PRN (14:01)
[2018-05-29 16:00] VITALS: BP 117/80
[2018-05-29] MEDS: CEFTRIAXONE 1 G PREMIX 50 ML IV SCH (17:48)
[2018-05-29 20:00] VITALS: BP 116/80
[2018-05-30] VITALS: BP 108/68
[2018-05-30 04:00] VITALS: BP 105/71
[2018-05-30] MEDS: SUCRALFATE 1 G/10 ML UDC PO SCH ×2 (05:08→12:10)
[2018-05-30] MEDS: METOCLOPRAMIDE HCL 5MG TABLET PO SCH ×2 (05:08→12:10)
[2018-05-30 07:46] VITALS: BP 104/70
[2018-05-30] MEDS: LEVETIRACETAM 500MG TABLET PO SCH (09:14)
[2018-05-30] MEDS: ENOXAPARIN 40MG/0.4ML SYR SUBCUT SCH (09:15)
[2018-05-30] MEDS: ASPIRIN 325MG EC TABLET PO SCH (09:15)
[2018-05-30] MEDS: FAMOTIDINE 20MG TABLET PO SCH (09:15)
[2018-05-30] MEDS: TRAMADOL 50MG TABLET PO PRN (10:44)
[2018-05-30] MEDS: LORAZEPAM 0.5MG TABLET PO PRN (10:44)
[2018-05-30 12:00] VITALS: BP 128/95
[2018-05-30 14:59] VITALS: BP 100/53
== END 2018-05-30 15:35 | disposition home or self-care (01) | DRG 241 ==
LOC: ER 13:12 → EDBEDREQ 05-28 02:32 → EDBEDREQTM 05-28 02:32 → EDBEDREQDT 05-28 02:32 → ENRESERV 05-28 04:49 → 5WST 05-28 05:33 → EDBEDREQTM 05-28 05:34 → EDBEDREQ 05-28 05:34
PROVIDERS: ADMIT Internal Medicine; ATTEND Internal Medicine
PROC: B5181ZA Fluoroscopy of Superior Vena Cava using Low Osmolar Contrast, Guidance (ICD-10-PCS; principal; 2018-05-29)
PROC: 02HV33Z Insertion of Infusion Device into Superior Vena Cava, Percutaneous Approach (ICD-10-PCS; 2018-05-29)
PROC: B548ZZA Ultrasonography of Superior Vena Cava, Guidance (ICD-10-PCS; 2018-05-29)
DX: K29.70 Gastritis, unspecified, without bleeding (principal); N17.0 Acute kidney failure with tubular necrosis; E43 Unspecified severe protein-calorie malnutrition; I42.9 Cardiomyopathy, unspecified; D64.9 Anemia, unspecified; N39.0 Urinary tract infection, site not specified; I50.9 Heart failure, unspecified; F12.10 Cannabis abuse, uncomplicated; G40.909 Epilepsy, unspecified, not intractable, without status epilepticus; I11.0 Hypertensive heart disease with heart failure; J45.909 Unspecified asthma, uncomplicated; Z91.14 Patient's other noncompliance with medication regimen; Z76.5 Malingerer [conscious simulation]; Z91.11 Patient's noncompliance with dietary regimen; I25.2 Old myocardial infarction; Z88.5 Allergy status to narcotic agent; Z79.899 Other long term (current) drug therapy; Z90.49 Acquired absence of other specified parts of digestive tract; Z68.25 Body mass index [BMI] 25.0-25.9, adult; Z71.89 Other specified counseling
CPT/HCPCS: 36415; 36569; 71045; 74176; 76937; 77001; 80305; 82550; 82553; 83605; 83880; 84484; 84703; 93005; 96361; 96374; 96375; 99285; C1725; G0482; J0696; J1170; J1200; J1650; J2270; J2405; J3490; J7030; J7040; J8597; Q9963

== ENCOUNTER 2019-01-04 17:47 | Emergency (ER) | payer MEDICAID ==
[~2019-01-04] VITALS: Ht 165.1 cm; Wt 85.0 kg
[~2019-01-04 17:47] MED LIST changes: +OMEP40CA34 MT; +[UNRECOGNIZED DRUG - CODE] MT
[2019-01-04] MEDS ORDERED: SODIUM CHLORIDE 0.9% 1,000 ML IV ONE (18:10)
[2019-01-04] MEDS ORDERED: ONDANSETRON HCL 4MG/2ML INJ IV STA (18:10)
[2019-01-04 18:54] LABS: BASOPHILS % 0.4 % (0.0-2.0); EOSINOPHILS % 2.4 % (0.0-5.0); HEMATOCRIT. 40.1 % (36.0-48.0); HEMOGLOBIN. 13.2 g/dL (12.0-16.0); LYMPHOCYTES % 24.8 % (20.0-50.0); MEAN CORPUSCULAR HEMOGLOBIN 28.6 pg (28.0-32.0); MEAN CORPUSCULAR VOLUME 87.1 fL (81.0-99.0); MEAN PLATELET VOLUME 7.6 fl (7.4-10.4); MONOCYTES % 5.4 % (2.0-8.0); PLATELET 349 x1000/uL (130-400); RED CELL DISTRIBUTION WIDTH 13.8 % (11.6-14.6)
[2019-01-04 18:57] LABS: CHLORIDE 102 mEq/L (98-107)
[2019-01-04 19:01] LABS: ETHANOL BLOOD < 10 mg/dL
[2019-01-04 21:07] LABS: CLARITY URINE CLOUDY (CLEAR); COLOR URINE YELLOW (YELLOW); KETONES URINE NEGATIVE (NEGATIVE); LEUKOCYTE ESTERASE URINE 3+ (NEGATIVE); NITRITE URINE POSITIVE (NEGATIVE); OCCULT BLOOD URINE TRACE (NEGATIVE); PH URINE 6.5 (4.5-8.0); PROTEIN URINE 1+ (NEGATIVE); UROBILINOGEN URINE 0.2 E.U./dL (0.2-1.0)
[2019-01-04 21:21] LABS: *AMPHETAMINES SCREEN URINE NEGATIVE (NEGATIVE); *BARBITURATES SCREEN URINE NEGATIVE (NEGATIVE); *BENZODIAZEPINES SCREEN URINE NEGATIVE (NEGATIVE); *COCAINE SCREEN URINE NEGATIVE (NEGATIVE); METHADONE URINE SCREEN NEGATIVE (NEGATIVE); OPIATES URINE SCREEN NEGATIVE (NEGATIVE)
[2019-01-04 21:22] LABS: PHENCYCLIDINE URINE SCREEN NEGATIVE (NEGATIVE)
[2019-01-04] MEDS ORDERED: CEFTRIAXONE 1 G PREMIX 50 ML IV ONE (21:30)
[2019-01-04 21:39] LABS: CANNABINOID URINE SCREEN PRESUMTIVE POSITIVE (NEGATIVE)
[2019-01-04] MEDS ORDERED: KETOROLAC 30MG/ML VIAL IV SCH (23:44)
[2019-01-05] MEDS ORDERED: ONDANSETRON HCL 4MG/2ML INJ IV SCH (00:15)
[2019-01-05 01:39] VITALS: BP 115/73
== END 2019-01-05 01:40 | disposition home or self-care (01) ==
LOC: ER 17:47
DX: F10.129 Alcohol abuse with intoxication, unspecified (principal); N39.0 Urinary tract infection, site not specified; R41.82 Altered mental status, unspecified; F12.10 Cannabis abuse, uncomplicated; I11.9 Hypertensive heart disease without heart failure; Y90.0 Blood alcohol level of less than 20 mg/100 ml; Z04.1 Encounter for examination and observation following transport accident; Z90.49 Acquired absence of other specified parts of digestive tract; Z87.448 Personal history of other diseases of urinary system; Z88.6 Allergy status to analgesic agent; Z79.899 Other long term (current) drug therapy
CPT/HCPCS: 36415; 70450; 80053; 80305; 80307; 80320; 80329; 81003; 83690; 84443; 84484; 85025; 85610; 87077; 87086; 87186; 93005; 96361; 96365; 96375; 99284; J0696; J1885; J2405; J7030; G0480

== ENCOUNTER 2019-06-15 13:01 | Emergency (ER) | payer MEDICAID ==
[~2019-06-15] VITALS: Ht 165.1 cm; Wt 91.0 kg
[~2019-06-15 13:01] MED LIST changes: +OMEP40CA12 MT; -OMEP40CA34 MT
[2019-06-15] MEDS ORDERED: SODIUM CHLORIDE 0.9% 1,000 ML IV ONE (13:39)
[2019-06-15] MEDS ORDERED: KETOROLAC 30MG/ML VIAL IV STA (13:39)
[2019-06-15] MEDS ORDERED: ONDANSETRON HCL 4MG/2ML INJ IV STA ×2 (13:39→15:37)
[2019-06-15 14:32] LABS: CHLORIDE 98 mEq/L (98-107)
[2019-06-15 14:36] LABS: BASOPHILS % 0.2 % (0.0-2.0); EOSINOPHILS % 0.1 % (0.0-5.0); ETHANOL BLOOD < 10 mg/dL; HEMATOCRIT. 39.9 % (36.0-48.0); HEMOGLOBIN. 13.5 g/dL (12.0-16.0); LYMPHOCYTES % 15.9 % (20.0-50.0); MEAN CORPUSCULAR HEMOGLOBIN 28.3 pg (28.0-32.0); MEAN CORPUSCULAR VOLUME 83.4 fL (81.0-99.0); MEAN PLATELET VOLUME 8.3 fl (7.4-10.4); MONOCYTES % 6.9 % (2.0-8.0); NEUTROPHILS % 76.9 % (40.0-76.0); PLATELET 375 x1000/uL (130-400); RED BLOOD CELL COUNT 4.78 mill/uL (4.2-5.4)
[2019-06-15] MEDS ORDERED: HALOPERIDOL LACTATE 5MG/ML VIAL IM ONE (15:00)
[2019-06-15] MEDS ORDERED: KCL 20MEQ/100ML PREMIX 100 ML IV ONE (15:00)
[2019-06-15 15:10] VITALS: BP 122/80
[2019-06-15] MEDS ORDERED: MORPHINE SULFATE 4 MG/ML CPJ (NOT FOR IM USE) IV STA (15:37)
[2019-06-15] MEDS ORDERED: DIPHENHYDRAMINE 12.5MG/5ML UDC PO ONE (15:45)
[2019-06-15] MEDS ORDERED: LORAZEPAM 2MG/ML CPJ IV ONE (15:45)
[2019-06-15] MEDS ORDERED: POTASSIUM CHLORIDE 20MEQ TABLET SR PO ONE (17:15)
[2019-06-19] MEDS ORDERED: SUCR1ORA15 PO (12:02)
[2019-06-19] MEDS ORDERED: ONDA4TAB11 PO (12:02)
== END 2019-06-15 17:40 | disposition home or self-care (01) ==
LOC: ER 13:01
DX: N30.00 Acute cystitis without hematuria (principal); R03.0 Elevated blood-pressure reading, without diagnosis of hypertension
CPT/HCPCS: 36415; 74176; 80053; 80320; 81025; 83690; 85025; 93005; 96361; 96365; 96375; 96376; 99284; J1885; J2060; J2270; J2405; J3480; J7030; G0480

== ENCOUNTER 2021-01-30 09:45 | Emergency (ER) | payer MEDICAID ==
[~2021-01-30] VITALS: Ht 167.6 cm; Wt 69.0 kg
[~2021-01-30 09:45] MED LIST changes: -OMEP40CA12 MT; +OMEP40CA20 MT; +ONDA4TAB11 PO; +SUCR1ORA15 PO
[2021-01-30] MEDS ORDERED: ONDANSETRON HCL 4MG/2ML INJ IV STA (10:57)
[2021-01-30] MEDS ORDERED: MORPHINE SULFATE 4 MG/ML CPJ (NOT FOR IM USE) IV STA (10:57)
[2021-01-30] MEDS ORDERED: FAMOTIDINE 20MG/2ML VIAL IV STA (10:57)
[2021-01-30] MEDS ORDERED: KETOROLAC 30MG/ML VIAL IV STA (10:57)
[2021-01-30] MEDS ORDERED: SODIUM CHLORIDE 0.9% 1,000 ML IV ONE (11:00)
[2021-01-30 11:55] LABS: BASOPHILS % 0.3 % (0.0-2.0); EOSINOPHILS % 0.1 % (0.0-5.0); HEMATOCRIT. 45.1 % (36.0-48.0); HEMOGLOBIN. 15.5 g/dL (12.0-16.0); LYMPHOCYTES % 14.7 % (20.0-50.0); MEAN CORPUSCULAR VOLUME 81.7 fL (81.0-99.0); MEAN PLATELET VOLUME 7.2 fl (7.4-10.4); MONOCYTES % 4.8 % (2.0-8.0); NEUTROPHILS % 80.1 % (40.0-76.0); PLATELET 514 x1000/uL (130-400); RED BLOOD CELL COUNT 5.52 mill/uL (4.2-5.4); RED CELL DISTRIBUTION WIDTH 14.1 % (11.6-14.6)
[2021-01-30 12:01] LABS: CHLORIDE 94 mEq/L (98-107)
[2021-01-30 12:03] LABS: PROTHROMBIN TIME 10.8 sec (9.6-11.0)
[2021-01-30 12:06] LABS: ETHANOL BLOOD < 10 mg/dL
[2021-01-30] MEDS ORDERED: DIPHENHYDRAMINE 50MG/ML VIAL IV ONE (12:30)
[2021-01-30] MEDS ORDERED: IOHEXOL-300 100 ML BOTTLE ONE ×2 (13:57→17:02)
[2021-01-30] MEDS ORDERED: FAMO40TA7 MT (15:27)
[2021-01-30] MEDS ORDERED: ONDA8TAB13 MT (15:27)
[2021-01-30] MEDS ORDERED: POTASSIUM BICARB/CIT ACID 25 MEQ TABLET.EFF PO NR (15:30)
[2021-01-30 15:42] LABS: CLARITY URINE TURBID (CLEAR); COLOR URINE DARK YELLOW (YELLOW); KETONES URINE 2+ (NEGATIVE); LEUKOCYTE ESTERASE URINE 2+ (NEGATIVE); NITRITE URINE NEGATIVE (NEGATIVE); OCCULT BLOOD URINE 2+ (NEGATIVE); PROTEIN URINE 1+ (NEGATIVE); SPECIFIC GRAVITY URINE 1.027 (1.005-1.030)
[2021-01-30 16:04] LABS: *AMPHETAMINES SCREEN URINE NEGATIVE (NEGATIVE); *BARBITURATES SCREEN URINE NEGATIVE (NEGATIVE); *BENZODIAZEPINES SCREEN URINE NEGATIVE (NEGATIVE); *COCAINE SCREEN URINE NEGATIVE (NEGATIVE); METHADONE URINE SCREEN NEGATIVE (NEGATIVE); OPIATES URINE SCREEN NEGATIVE (NEGATIVE)
[2021-01-30 16:05] LABS: PHENCYCLIDINE URINE SCREEN NEGATIVE (NEGATIVE)
[2021-01-30 16:12] LABS: CANNABINOID URINE SCREEN PRESUMTIVE POSITIVE (NEGATIVE)
[2021-01-30 17:32] VITALS: BP 122/72
== END 2021-01-30 17:33 | disposition home or self-care (01) ==
LOC: ER 09:45
DX: R10.0 Acute abdomen (principal); E87.6 Hypokalemia; K44.9 Diaphragmatic hernia without obstruction or gangrene; D25.9 Leiomyoma of uterus, unspecified; K29.70 Gastritis, unspecified, without bleeding; I50.9 Heart failure, unspecified; J45.909 Unspecified asthma, uncomplicated; Z79.899 Other long term (current) drug therapy; Z90.49 Acquired absence of other specified parts of digestive tract
CPT/HCPCS: 36415; 74177; 80053; 80305; 80320; 81003; 81025; 83690; 85025; 85610; 93005; 96374; 96375; 99285; J1200; J1885; J2270; J2405; J3490; J7030; Q9967; Z7610; G0480

== ENCOUNTER 2021-02-21 23:14 | Inpatient (IN) | payer MEDICAID ==
[~2021-02-21] VITALS: Ht 160 cm; Wt 69.9 kg
[~2021-02-21 23:14] MED LIST changes: +FAMO40TA7 MT; +ONDA8TAB13 MT
[2021-02-22] MEDS ORDERED: ONDANSETRON HCL 4MG/2ML INJ IV STA (00:07)
[2021-02-22] MEDS ORDERED: MORPHINE SULFATE 4 MG/ML CPJ (NOT FOR IM USE) IV STA (00:07)
[2021-02-22] MEDS ORDERED: DIPHENHYDRAMINE 50MG/ML VIAL IV ONE (00:15)
[2021-02-22 00:38] LABS: HEMATOCRIT. 37.7 % (36.0-48.0); HEMOGLOBIN. 12.8 g/dL (12.0-16.0); MEAN CORPUSCULAR HEMOGLOBIN 28.4 pg (28.0-32.0); MEAN CORPUSCULAR VOLUME 83.4 fL (81.0-99.0); MEAN PLATELET VOLUME 7.7 fl (7.4-10.4); PLATELET 444 x1000/uL (130-400); RED BLOOD CELL COUNT 4.52 mill/uL (4.2-5.4)
[2021-02-22 00:46] LABS: CHLORIDE 100 mEq/L (98-107)
[2021-02-22 00:48] LABS: PROTHROMBIN TIME 10.9 sec (9.6-11.0)
[2021-02-22] MEDS ORDERED: SODIUM CHLORIDE 0.9% 1,000 ML IV ONE ×2 (01:15)
[2021-02-22 01:17] LABS: HCG SCREEN NEGATIVE
[2021-02-22 01:26] LABS: PLATELET ESTIMATE INCREASED
[2021-02-22] MEDS ORDERED: POTASSIUM CHLORIDE 20MEQ TABLET SR PO ONE (01:45)
[2021-02-22] MEDS ORDERED: MORPHINE SULFATE 4 MG/ML CPJ (NOT FOR IM USE) IV ONE (05:00)
[2021-02-22 05:15] LABS: CHLORIDE 104 mEq/L (98-107)
[2021-02-22 08:00] VITALS: BP 115/84
[2021-02-22] MEDS ORDERED: HYDROCODONE/ACETAMINOPHEN 5/325MG TABLET PO PRN (08:30)
[2021-02-22] MEDS ORDERED: ONDANSETRON HCL 4MG/2ML INJ IV PRN (08:30)
[2021-02-22 09:00] VITALS: BP 115/84
[2021-02-22] MEDS ORDERED: FAMOTIDINE 20MG TABLET PO SCH ×2 (09:00→21:00)
[2021-02-22] MEDS ORDERED: NALOXONE HCL 0.4MG/ML VIAL IV PRN (09:00)
[2021-02-22] MEDS ORDERED: POTASSIUM CHLORIDE 20MEQ TABLET SR PO SCH (09:00)
[2021-02-22] MEDS ORDERED: OMEP20TA2 PO (10:28)
[2021-02-22] MEDS ORDERED: FAMO-135 PO (10:28)
[2021-02-22] MEDS ORDERED: ESCI20TA PO (10:28)
[2021-02-22 12:00] VITALS: BP 113/76
[2021-02-22] MEDS ORDERED: INFLUENZA VACCINE 05/PF 0.5 ML SYRINGE IM ONE (13:00)
[2021-02-22 16:00] VITALS: BP 101/66
[2021-02-22 17:46] VITALS: BP 101/66
== END 2021-02-22 18:55 | disposition home or self-care (01) | DRG 241 ==
LOC: ER 23:14 → 8WST 02-22 04:34 → ENRESERV 02-22 07:25
PROVIDERS: ADMIT Internal Medicine; ATTEND Internal Medicine
DX: K29.70 Gastritis, unspecified, without bleeding (principal); I11.0 Hypertensive heart disease with heart failure; E87.1 Hypo-osmolality and hyponatremia; I50.9 Heart failure, unspecified; E87.6 Hypokalemia; Z79.899 Other long term (current) drug therapy; Z88.5 Allergy status to narcotic agent; Z88.8 Allergy status to other drugs, medicaments and biological substances; Z90.49 Acquired absence of other specified parts of digestive tract
CPT/HCPCS: 36415; 74176; 80048; 80053; 83605; 84703; 85025; 93005; 99285; J1200; J2270; J2405; J7030

== ENCOUNTER 2021-03-16 10:34 | Inpatient (IN) | payer MEDICAID, OTHER ==
[~2021-03-16] VITALS: Ht 152.4 cm; Wt 73.9 kg
[~2021-03-16 10:34] MED LIST changes: -COR6 PO; +ESCI20TA PO; +FAMO-135 PO; -FAMO40TA7 MT; -GUAI600T44 PO; -KEPP500 PO; -LORA-250 PO; -LOSA50TA3 PO; -METO10TA3 PO; +OMEP20TA2 PO; -OMEP40CA20 MT; -ONDA4TAB11 PO; -ONDA8TAB13 MT; -SUCR1ORA15 PO; -[UNRECOGNIZED DRUG - CODE] MT
[2021-03-16] MEDS ORDERED: ONDANSETRON HCL 4MG/2ML INJ IV STA (10:36)
[2021-03-16] MEDS ORDERED: KETOROLAC 30MG/ML VIAL IV STA (10:36)
[2021-03-16] MEDS ORDERED: SODIUM CHLORIDE 0.9% 1,000 ML IV ONE (10:45)
[2021-03-16] MEDS ORDERED: MORPHINE SULFATE 4 MG/ML CPJ (NOT FOR IM USE) IV STA (13:12)
[2021-03-16] MEDS ORDERED: DIPHENHYDRAMINE 50MG/ML VIAL IV ONE (13:15)
[2021-03-16 13:22] LABS: HEMOGLOBIN. 12.1 g/dL (12.0-16.0); MEAN CORPUSCULAR HEMOGLOBIN 27.7 pg (28.0-32.0); MEAN CORPUSCULAR VOLUME 84.8 fL (81.0-99.0); MEAN PLATELET VOLUME 7.7 fl (7.4-10.4); PLATELET 413 x1000/uL (130-400); RED BLOOD CELL COUNT 4.36 mill/uL (4.2-5.4); RED CELL DISTRIBUTION WIDTH 14.1 % (11.6-14.6)
[2021-03-16 13:36] LABS: HCG SCREEN NEGATIVE
[2021-03-16 13:38] LABS: CHLORIDE 108 mEq/L (98-107)
[2021-03-16 13:46] LABS: ETHANOL BLOOD < 10 mg/dL
[2021-03-16 14:09] LABS: PLATELET ESTIMATE SLIGHTLY INCREASED
[2021-03-16] MEDS ORDERED: PROCHLORPERAZINE 10MG/2ML VIAL IV PRN (16:00)
[2021-03-16] MEDS ORDERED: AZITHROMYCIN 500 MG in DEXT 5% WATER 250 ML IV SCH (16:15)
[2021-03-17] VITALS (7 sets, daily range): BP systolic 100–143; BP diastolic 53–87
[2021-03-17] MEDS ORDERED: LORAZEPAM 2MG/ML CPJ IV PRN (01:45)
[2021-03-17] MEDS: DIPHENHYDRAMINE 50MG/ML VIAL IV PRN ×3 (01:51→16:47)
[2021-03-17] MEDS: MORPHINE SULFATE 2 MG/ML CPJ (NOT FOR IM USE) IV PRN ×5 (01:51→21:12)
[2021-03-17] MEDS: ONDANSETRON HCL 4MG/2ML INJ IV PRN ×2 (05:40→16:47)
[2021-03-17 06:27] LABS: BASOPHILS % 0.3 % (0.0-2.0); EOSINOPHILS % 0.1 % (0.0-5.0); HEMATOCRIT. 36.9 % (36.0-48.0); HEMOGLOBIN. 12.1 g/dL (12.0-16.0); LYMPHOCYTES % 12.9 % (20.0-50.0); MEAN CORPUSCULAR HEMOGLOBIN 27.5 pg (28.0-32.0); MEAN CORPUSCULAR VOLUME 84.1 fL (81.0-99.0); MEAN PLATELET VOLUME 8.3 fl (7.4-10.4); MONOCYTES % 4.8 % (2.0-8.0); NEUTROPHILS % 81.9 % (40.0-76.0); PLATELET 369 x1000/uL (130-400); RED BLOOD CELL COUNT 4.39 mill/uL (4.2-5.4)
[2021-03-17 06:32] LABS: CHLORIDE 106 mEq/L (98-107)
[2021-03-17] MEDS ORDERED: INFLUENZA VACCINE 05/PF 0.5 ML SYRINGE IM ONE (09:00)
[2021-03-17] MEDS ORDERED: DOCUSATE SODIUM 100MG CAPSULE PO PRN (15:00)
[2021-03-17] MEDS ORDERED: MAGNESIUM/ALUMINUM HYDROXIDE/SIMETHICONE 30ML UDC PO PRN (15:00)
[2021-03-17] MEDS ORDERED: CLONIDINE 0.1MG TABLET PO PRN (15:00)
[2021-03-17] MEDS ORDERED: HYDROCODONE/ACETAMINOPHEN 5/325MG TABLET PO PRN (15:00)
[2021-03-17] MEDS ORDERED: IPRATROPIUM/ALBUTEROL 0.5-3(2.5)MG/3ML NEB HHN PRN (15:00)
[2021-03-17] MEDS: DEXT 5%/0.45% NACL 1000ML 1,000 ML IV SCH (15:00)
[2021-03-17] MEDS ORDERED: NALOXONE HCL 0.4MG/ML VIAL IV PRN (15:15)
[2021-03-17] MEDS ORDERED: KCL 20MEQ/100ML PREMIX 100 ML IV NR (16:30)
[2021-03-17] MEDS: ENOXAPARIN 40MG/0.4ML SYR SUBCUT SCH (17:00)
[2021-03-17] MEDS: AZITHROMYCIN 250 MG in DEXT 5% WATER 250 ML IV SCH (21:22)
[2021-03-17 22:44] LABS: CLARITY URINE CLEAR (CLEAR); COLOR URINE YELLOW (YELLOW); KETONES URINE NEGATIVE (NEGATIVE); LEUKOCYTE ESTERASE URINE TRACE (NEGATIVE); NITRITE URINE NEGATIVE (NEGATIVE); OCCULT BLOOD URINE TRACE (NEGATIVE); PROTEIN URINE NEGATIVE (NEGATIVE); SPECIFIC GRAVITY URINE 1.005 (1.005-1.030); UROBILINOGEN URINE 0.2 E.U./dL (0.2-1.0)
[2021-03-17 22:54] LABS: *COCAINE SCREEN URINE NEGATIVE (NEGATIVE); METHADONE URINE SCREEN NEGATIVE (NEGATIVE)
[2021-03-17 22:55] LABS: *AMPHETAMINES SCREEN URINE NEGATIVE (NEGATIVE); *BARBITURATES SCREEN URINE NEGATIVE (NEGATIVE); *BENZODIAZEPINES SCREEN URINE NEGATIVE (NEGATIVE); PHENCYCLIDINE URINE SCREEN NEGATIVE (NEGATIVE)
[2021-03-17 23:05] LABS: CANNABINOID URINE SCREEN PRESUMTIVE POSITIVE (NEGATIVE); OPIATES URINE SCREEN PRESUMTIVE POSITIVE (NEGATIVE)
[2021-03-17] MEDS: HYDROMORPHONE HCL/PF 2MG/ML CPJ IV PRN (23:45)
[2021-03-18] VITALS: BP 109/52
[2021-03-18] MEDS: HYDROMORPHONE HCL/PF 2MG/ML CPJ IV PRN ×4 (03:57→19:56)
[2021-03-18 04:00] VITALS: BP 107/80
[2021-03-18 06:46] LABS: CHLORIDE 107 mEq/L (98-107)
[2021-03-18 06:58] LABS: AMYLASE 70 IU/L (25-115)
[2021-03-18 08:00] VITALS: BP 105/80
[2021-03-18] MEDS: OMEPRAZOLE 20MG CAPSULE EXTENDED RELEASE PO SCH (08:53)
[2021-03-18 11:41] LABS: BASOPHILS % 0.7 % (0.0-2.0); EOSINOPHILS % 2.1 % (0.0-5.0); HEMATOCRIT. 39.4 % (36.0-48.0); HEMOGLOBIN. 12.9 g/dL (12.0-16.0); LYMPHOCYTES % 31.4 % (20.0-50.0); MEAN CORPUSCULAR HEMOGLOBIN 27.9 pg (28.0-32.0); MEAN CORPUSCULAR VOLUME 85.3 fL (81.0-99.0); MEAN PLATELET VOLUME 8.3 fl (7.4-10.4); MONOCYTES % 7.1 % (2.0-8.0); NEUTROPHILS % 58.7 % (40.0-76.0); PLATELET 358 x1000/uL (130-400); RED BLOOD CELL COUNT 4.63 mill/uL (4.2-5.4)
[2021-03-18 12:00] VITALS: BP 117/82
[2021-03-18 16:00] VITALS: BP 116/80
[2021-03-18] MEDS: ENOXAPARIN 40MG/0.4ML SYR SUBCUT SCH (18:02)
[2021-03-18] MEDS: AZITHROMYCIN 250 MG in DEXT 5% WATER 250 ML IV SCH (19:57)
[2021-03-18 20:00] VITALS: BP 124/78
[2021-03-19] VITALS: BP 110/66
[2021-03-19] MEDS: HYDROMORPHONE HCL/PF 2MG/ML CPJ IV PRN ×3 (01:42→10:15)
[2021-03-19 04:00] VITALS: BP 100/50
[2021-03-19] MEDS: DEXT 5%/0.45% NACL 1000ML 1,000 ML IV SCH (05:53)
[2021-03-19] MEDS: METOCLOPRAMIDE HCL 10MG/2ML VIAL IV SCH ×3 (05:59→17:12)
[2021-03-19] MEDS: OMEPRAZOLE 20MG CAPSULE EXTENDED RELEASE PO SCH (06:50)
[2021-03-19 08:00] VITALS: BP 142/106
[2021-03-19 11:11] LABS: BASOPHILS % 0.9 % (0.0-2.0); EOSINOPHILS % 3.5 % (0.0-5.0); HEMATOCRIT. 41.6 % (36.0-48.0); HEMOGLOBIN. 13.9 g/dL (12.0-16.0); MEAN CORPUSCULAR HEMOGLOBIN 28.5 pg (28.0-32.0); MEAN CORPUSCULAR VOLUME 85.1 fL (81.0-99.0); MEAN PLATELET VOLUME 8.9 fl (7.4-10.4); MONOCYTES % 4.9 % (2.0-8.0); NEUTROPHILS % 49.7 % (40.0-76.0); PLATELET 322 x1000/uL (130-400); RED BLOOD CELL COUNT 4.89 mill/uL (4.2-5.4); RED CELL DISTRIBUTION WIDTH 14.2 % (11.6-14.6)
[2021-03-19 11:17] LABS: CHLORIDE 105 mEq/L (98-107)
[2021-03-19 11:25] LABS: PHOSPHORUS 2.9 mg/dL (2.5-4.9)
[2021-03-19 12:00] VITALS: BP 133/78
[2021-03-19 16:00] VITALS: BP 140/74
[2021-03-19] MEDS: ENOXAPARIN 40MG/0.4ML SYR SUBCUT SCH (17:12)
== END 2021-03-19 18:40 | disposition left against medical advice (07) | DRG 249 ==
LOC: ER 10:37 → 8WST 18:22 → ENRESERV 22:32
PROVIDERS: ADMIT Internal Medicine; ATTEND Internal Medicine
DX: K52.9 Noninfective gastroenteritis and colitis, unspecified (principal); I42.9 Cardiomyopathy, unspecified; I50.22 Chronic systolic (congestive) heart failure; E87.6 Hypokalemia; J45.909 Unspecified asthma, uncomplicated; D25.9 Leiomyoma of uterus, unspecified; R11.2 Nausea with vomiting, unspecified; F32.A Depression, unspecified; F12.90 Cannabis use, unspecified, uncomplicated; Z53.29 Procedure and treatment not carried out because of patient's decision for other reasons; K76.0 Fatty (change of) liver, not elsewhere classified; N28.1 Cyst of kidney, acquired; Z90.49 Acquired absence of other specified parts of digestive tract; Z88.5 Allergy status to narcotic agent; Z79.899 Other long term (current) drug therapy
CPT/HCPCS: 36415; 74176; 80048; 80053; 80305; 80320; 81003; 82150; 82962; 83735; 84100; 84703; 85025; 90686; 93970; 99285; J0456; J1170; J1200; J1650; J1885; J2270; J2405; J2765; J3480; J7030; J7060; G0480

== ENCOUNTER 2021-04-29 18:06 | Inpatient (IN) | payer MEDICAID, OTHER ==
[~2021-04-29] VITALS: Ht 165.1 cm; Wt 75.0 kg
[2021-04-29] MEDS ORDERED: LORAZEPAM 2MG/ML CPJ IV ONE (19:15)
[2021-04-29] MEDS ORDERED: SODIUM CHLORIDE 0.9% 1,000 ML IV ONE (19:15)
[2021-04-29 21:03] LABS: BASOPHILS % 0.3 % (0.0-2.0); HEMATOCRIT. 41.7 % (36.0-48.0); HEMOGLOBIN. 13.6 g/dL (12.0-16.0); LYMPHOCYTES % 7.7 % (20.0-50.0); MEAN CORPUSCULAR HEMOGLOBIN 26.9 pg (28.0-32.0); MEAN CORPUSCULAR VOLUME 82.4 fL (81.0-99.0); MEAN PLATELET VOLUME 7.8 fl (7.4-10.4); MONOCYTES % 4.5 % (2.0-8.0); NEUTROPHILS % 87.5 % (40.0-76.0); PLATELET 338 x1000/uL (130-400); RED BLOOD CELL COUNT 5.06 mill/uL (4.2-5.4)
[2021-04-29 21:07] LABS: CHLORIDE 97 mEq/L (98-107)
[2021-04-29 21:11] LABS: ETHANOL BLOOD < 10 mg/dL
[2021-04-29 22:39] LABS: CLARITY URINE CLOUDY (CLEAR); COLOR URINE YELLOW (YELLOW); KETONES URINE 1+ (NEGATIVE); LEUKOCYTE ESTERASE URINE TRACE (NEGATIVE); NITRITE URINE NEGATIVE (NEGATIVE); OCCULT BLOOD URINE TRACE (NEGATIVE); PROTEIN URINE 1+ (NEGATIVE); SPECIFIC GRAVITY URINE 1.022 (1.005-1.030); UROBILINOGEN URINE 0.2 E.U./dL (0.2-1.0)
[2021-04-29 23:04] LABS: *AMPHETAMINES SCREEN URINE NEGATIVE (NEGATIVE); *BARBITURATES SCREEN URINE NEGATIVE (NEGATIVE); *BENZODIAZEPINES SCREEN URINE NEGATIVE (NEGATIVE); *COCAINE SCREEN URINE NEGATIVE (NEGATIVE)
[2021-04-29 23:06] LABS: METHADONE URINE SCREEN NEGATIVE (NEGATIVE); OPIATES URINE SCREEN NEGATIVE (NEGATIVE); PHENCYCLIDINE URINE SCREEN NEGATIVE (NEGATIVE)
[2021-04-29 23:08] LABS: CANNABINOID URINE SCREEN PRESUMTIVE POSITIVE (NEGATIVE)
[2021-04-29] MEDS ORDERED: POTASSIUM CHLORIDE 20MEQ TABLET SR PO SCH (23:15)
[2021-04-30] MEDS ORDERED: DIPHENHYDRAMINE 50MG/ML VIAL IV ONE ×2 (00:30→07:15)
[2021-04-30] MEDS ORDERED: MORPHINE SULFATE 4 MG/ML CPJ (NOT FOR IM USE) IV ONE (00:30)
[2021-04-30] MEDS ORDERED: ONDANSETRON HCL 4MG/2ML INJ IV PRN (04:45)
[2021-04-30] MEDS: MORPHINE SULFATE 2 MG/ML CPJ (NOT FOR IM USE) IV PRN ×2 (07:22→10:01)
[2021-04-30] MEDS ORDERED: ACETAMINOPHEN 325MG TABLET PO PRN (10:45)
[2021-04-30] MEDS ORDERED: LEVETIRACETAM 500MG TABLET PO SCH (11:00)
[2021-04-30] MEDS ORDERED: OMEPRAZOLE 20MG CAPSULE EXTENDED RELEASE PO SCH (11:30)
[2021-04-30] MEDS ORDERED: DIPHENHYDRAMINE 50MG/ML VIAL IV PRN (15:15)
[2021-04-30] MEDS ORDERED: MORPHINE SULFATE 2 MG/ML CPJ (NOT FOR IM USE) IV PRN (15:30)
[2021-04-30 15:33] VITALS: BP 99/58
[2021-04-30] MEDS ORDERED: KETOROLAC 30MG/ML VIAL IV PRN (16:00)
== END 2021-04-30 16:23 | disposition home or self-care (01) | DRG 53 ==
LOC: ER 18:06 → MICUSO 22:47
PROVIDERS: ADMIT Internal Medicine; ATTEND Internal Medicine
DX: R56.9 Unspecified convulsions (principal); E87.8 Other disorders of electrolyte and fluid balance, not elsewhere classified; I50.9 Heart failure, unspecified; E87.6 Hypokalemia; I11.0 Hypertensive heart disease with heart failure; F12.90 Cannabis use, unspecified, uncomplicated; J45.909 Unspecified asthma, uncomplicated; Z20.822 Contact with and (suspected) exposure to COVID-19; G89.29 Other chronic pain; Z79.899 Other long term (current) drug therapy; Z88.5 Allergy status to narcotic agent; Z88.8 Allergy status to other drugs, medicaments and biological substances; Z90.49 Acquired absence of other specified parts of digestive tract; Z76.5 Malingerer [conscious simulation]; Z71.51 Drug abuse counseling and surveillance of drug abuser
CPT/HCPCS: 36415; 71045; 80053; 80305; 80320; 81003; 84484; 85025; 87426; 93005; 99285; J1200; J2060; J2270; J2405; J7030; G0480

== ENCOUNTER 2021-05-27 13:47 | Inpatient (IN) | payer OTHER ==
[~2021-05-27] VITALS: Ht 152.4 cm; Wt 69.6 kg
[2021-05-27] MEDS ORDERED: FAMOTIDINE 20MG/2ML VIAL IV STA (14:19)
[2021-05-27] MEDS ORDERED: SODIUM CHLORIDE 0.9% 1,000 ML IV ONE (14:30)
[2021-05-27 15:56] LABS: BASOPHILS % 0.2 % (0.0-2.0); HEMOGLOBIN. 13.4 g/dL (12.0-16.0); LYMPHOCYTES % 11.2 % (20.0-50.0); MEAN CORPUSCULAR HEMOGLOBIN 27.2 pg (28.0-32.0); MEAN CORPUSCULAR VOLUME 81.4 fL (81.0-99.0); MEAN PLATELET VOLUME 7.8 fl (7.4-10.4); MONOCYTES % 6.7 % (2.0-8.0); NEUTROPHILS % 81.9 % (40.0-76.0); PLATELET 468 x1000/uL (130-400); RED BLOOD CELL COUNT 4.92 mill/uL (4.2-5.4); RED CELL DISTRIBUTION WIDTH 14.1 % (11.6-14.6)
[2021-05-27 16:01] LABS: CHLORIDE 91 mEq/L (98-107)
[2021-05-27] MEDS ORDERED: POTASSIUM CHLORIDE INJ 40 MEQ in DEXT 5% WATER 500 ML IV ONE (16:45)
[2021-05-27] MEDS ORDERED: KETOROLAC 15MG/ML VIAL IV ONE (17:00)
[2021-05-27] MEDS ORDERED: METOCLOPRAMIDE HCL 10MG/2ML VIAL IV ONE (17:15)
[2021-05-27] MEDS: KCL 20MEQ/100ML PREMIX 100 ML IV SCH ×2 (17:20→19:06)
[2021-05-27 21:49] LABS: CHLORIDE 97 mEq/L (98-107)
[2021-05-27 22:49] LABS: BASOPHILS % 0.5 % (0.0-2.0); EOSINOPHILS % 0.1 % (0.0-5.0); HEMATOCRIT. 36.3 % (36.0-48.0); HEMOGLOBIN. 12.3 g/dL (12.0-16.0); LYMPHOCYTES % 23.7 % (20.0-50.0); MEAN CORPUSCULAR HEMOGLOBIN 27.5 pg (28.0-32.0); MEAN CORPUSCULAR VOLUME 81.5 fL (81.0-99.0); MEAN PLATELET VOLUME 7.6 fl (7.4-10.4); MONOCYTES % 8.6 % (2.0-8.0); NEUTROPHILS % 67.1 % (40.0-76.0); PLATELET 382 x1000/uL (130-400); RED BLOOD CELL COUNT 4.46 mill/uL (4.2-5.4); RED CELL DISTRIBUTION WIDTH 14.1 % (11.6-14.6)
[2021-05-28] MEDS ORDERED: NALOXONE HCL 0.4MG/ML VIAL IV PRN (07:30)
[2021-05-28] MEDS ORDERED: HYDROCODONE/ACETAMINOPHEN 5/325MG TABLET PO PRN (07:30)
[2021-05-28] MEDS: ONDANSETRON HCL 4MG/2ML INJ IV PRN ×3 (08:02→22:16)
[2021-05-28] MEDS: KETOROLAC 30MG/ML VIAL IV PRN ×2 (10:00→16:15)
[2021-05-28 10:15] VITALS: BP 128/85
[2021-05-28 10:52] VITALS: BP 128/85
[2021-05-28] MEDS: LORAZEPAM 2MG/ML CPJ IV PRN ×2 (14:08→21:13)
[2021-05-28] MEDS ORDERED: LEVETIRACETAM 500 MG in SODIUM CHLORIDE 0.9% 100 ML IV SCH (14:15)
[2021-05-28 16:00] VITALS: BP 99/65
[2021-05-28] MEDS: LEVETIRACETAM 500MG PREMIX 100 ML IV SCH (16:16)
[2021-05-28 20:00] VITALS: BP 113/72
[2021-05-28 21:10] VITALS: BP 138/75
[2021-05-28] MEDS: DIPHENHYDRAMINE 50MG/ML VIAL IV PRN (21:13)
[2021-05-29] VITALS: BP 109/82
[2021-05-29] MEDS: LEVETIRACETAM 500MG PREMIX 100 ML IV SCH ×2 (00:11→08:50)
[2021-05-29 04:00] VITALS: BP 106/72
[2021-05-29] MEDS ORDERED: OMEPRAZOLE 20MG CAPSULE EXTENDED RELEASE PO SCH (06:30)
[2021-05-29 08:00] VITALS: BP 108/64
[2021-05-29] MEDS: DIPHENHYDRAMINE 50MG/ML VIAL IV PRN (08:55)
[2021-05-29] MEDS: LORAZEPAM 2MG/ML CPJ IV PRN (09:21)
[2021-05-29 12:00] VITALS: BP 101/72
[2021-05-29 15:35] VITALS: BP 101/72
== END 2021-05-29 16:05 | disposition home or self-care (01) | DRG 720 ==
LOC: ER 13:54 → MICUSO 18:59 → EDBEDREQ 19:12 → EDBEDREQTM 19:12 → 8WST 05-28 11:45
PROVIDERS: ADMIT Internal Medicine; ATTEND Internal Medicine
DX: A41.9 Sepsis, unspecified organism (principal); E87.1 Hypo-osmolality and hyponatremia; E87.8 Other disorders of electrolyte and fluid balance, not elsewhere classified; R56.9 Unspecified convulsions; F12.90 Cannabis use, unspecified, uncomplicated; K56.7 Ileus, unspecified; E87.6 Hypokalemia; K52.9 Noninfective gastroenteritis and colitis, unspecified; Z20.822 Contact with and (suspected) exposure to COVID-19; J45.909 Unspecified asthma, uncomplicated; Z90.49 Acquired absence of other specified parts of digestive tract; Z88.5 Allergy status to narcotic agent; Z79.899 Other long term (current) drug therapy; Z71.51 Drug abuse counseling and surveillance of drug abuser; R11.11 Vomiting without nausea
CPT/HCPCS: 36415; 74176; 80053; 83735; 83880; 85025; 87426; 93005; 99285; J1200; J1885; J1953; J2060; J2405; J2765; J3480; J3490; J7030

== ENCOUNTER 2024-12-30 07:22 | Emergency (ER) | payer MEDICAID, OTHER ==
[~2024-12-30] VITALS: Ht 172.7 cm; Wt 86.0 kg
[~2024-12-30 07:22] MED LIST changes: -OMEP20TA2 PO; +OMEP20TA23 PO
[2024-12-30 07:25] VITALS: O2SAT 96
[2024-12-30] MEDS ORDERED: HYDROMORPHONE HCL/PF 2MG/ML INJ IV ONE (07:45)
[2024-12-30] MEDS: LORAZEPAM 2MG/ML UD SYRINGE ONE (07:48)
[2024-12-30] MEDS: ONDANSETRON HCL 4MG/2ML INJ IV ONE (08:09)
[2024-12-30] MEDS: SODIUM CHLORIDE 0.9% 1,000 ML IV ONE (08:09)
[2024-12-30] MEDS ORDERED: ONDANSETRON HCL 4MG/2ML INJ IV NR (08:15)
[2024-12-30] MEDS: HYDROMORPHONE HCL/PF 1MG/ML INJ IV NR ×2 (08:24→11:37)
[2024-12-30] MEDS: LORAZEPAM 2MG/ML UD SYRINGE IV NR (08:26)
[2024-12-30 08:31] LABS: BASOPHILS % 0.1 % (0.0-2.0); EOSINOPHILS % 0.5 % (0.0-5.0); HEMATOCRIT. 43.0 % (36.0-48.0); HEMOGLOBIN. 14.2 g/dL (12.0-16.0); LYMPHOCYTES % 11.7 % (20.0-50.0); MONOCYTES % 4.6 % (2.0-8.0); NEUTROPHILS % 83.1 % (40.0-76.0); RED BLOOD CELL COUNT 5.33 mill/uL (4.2-5.4); RED CELL DISTRIBUTION WIDTH 15.9 % (11.6-14.6)
[2024-12-30 08:42] LABS: HCG SCREEN NEGATIVE
[2024-12-30 08:45] LABS: TROPONIN I HIGH SENSITIVITY 14 ng/L (3.0-34)
[2024-12-30 08:54] LABS: CREATININE 0.9 mg/dL (0.6-1.0); ETHANOL BLOOD < 10 mg/dL (<10); UREA NITROGEN BLOOD 12 mg/dL (9-23)
[2024-12-30 08:55] LABS: ASPARTATE AMINOTRANSFERASE 20 IU/L (<34)
[2024-12-30 08:56] LABS: BILIRUBIN DIRECT < 0.1 mg/dL (<=3.0); BILIRUBIN TOTAL 0.4 mg/dL (0.1-1.0); PROTEIN TOTAL 8.9 g/dL (6.0-8.3)
[2024-12-30 08:57] LABS: PLATELET 438 x1000/uL (130-400)
[2024-12-30] MEDS: PANTOPRAZOLE 80 MG in SODIUM CHLORIDE 0.9% 100 ML IV ONE (09:30)
[2024-12-30] MEDS: KCL 10MEQ/50ML PREMIX 50 ML IV SCH (10:21)
[2024-12-30 10:25] LABS: TROPONIN I HIGH SENSITIVITY 19 ng/L (3.0-34)
[2024-12-30 12:58] VITALS: BP 104/68; PULSE 105; RESP 15; TEMP 36.5; O2SAT 96
[2024-12-30] MEDS ORDERED: LORAZEPAM 2MG/ML UD SYRINGE IV SCH (17:30)
[2024-12-30] MEDS ORDERED: IOHEXOL-300 100 ML BOTTLE ONE (23:32)
== END 2024-12-30 17:12 | disposition short-term general hospital (02) ==
LOC: ER 07:22 → CANBEDREQ 11:25 → ER 17:12
DX: E87.6 Hypokalemia (principal); R56.9 Unspecified convulsions; R10.84 Generalized abdominal pain; F12.10 Cannabis abuse, uncomplicated; J45.909 Unspecified asthma, uncomplicated; Z88.5 Allergy status to narcotic agent; Z88.8 Allergy status to other drugs, medicaments and biological substances; Z90.49 Acquired absence of other specified parts of digestive tract
CPT/HCPCS: 80076; 80048; 80320; 82962; 84703; 83690; 83735; 85025; 84484; 74177; 93005; 96367; 96361; 96365; 36415; 96375; 96376; 99285; Q9967; J2060; J2405; J2470; J3480; J1171; J7050; J7030; G0480

== ENCOUNTER 2025-02-01 14:06 | Emergency (ER) | payer MEDICAID ==
[~2025-02-01] VITALS: Ht 170.2 cm; Wt 91.0 kg
[2025-02-01 14:15] VITALS: O2SAT 100
[2025-02-01] MEDS: LORAZEPAM 2MG/ML UD SYRINGE IV SCH (16:02)
[2025-02-01 17:33] LABS: HEMATOCRIT. 35.7 % (36.0-48.0); HEMOGLOBIN. 11.4 g/dL (12.0-16.0); MEAN PLATELET VOLUME 7.1 fl (7.4-10.4); PLATELET 411 x1000/uL (130-400); RED BLOOD CELL COUNT 4.36 mill/uL (4.2-5.4); RED CELL DISTRIBUTION WIDTH 15.6 % (11.6-14.6)
[2025-02-01 17:46] LABS: CREATININE 0.7 mg/dL (0.6-1.0); ETHANOL BLOOD < 10 mg/dL (<10); UREA NITROGEN BLOOD 10 mg/dL (9-23)
[2025-02-01 17:47] LABS: ASPARTATE AMINOTRANSFERASE 17 IU/L (<34)
[2025-02-01 17:48] LABS: BILIRUBIN DIRECT < 0.1 mg/dL (<=3.0); BILIRUBIN TOTAL 0.3 mg/dL (0.1-1.0); HCG SCREEN NEGATIVE; PROTEIN TOTAL 7.5 g/dL (6.0-8.3)
[2025-02-01 18:02] LABS: LYMPHOCYTES % MANUAL 11.0 % (20.0-60.0); MONOCYTES % MANUAL 7.0 % (2.0-8.0); NEUTROPHILS % MANUAL 82.0 % (45.0-75.0); PLATELET ESTIMATE SLIGHTLY INCREASED
[2025-02-01] MEDS ORDERED: KCL 10MEQ/50ML PREMIX 50 ML IV SCH ×2 (18:30→21:15)
[2025-02-01 18:58] LABS: CLARITY URINE TURBID (CLEAR); COLOR URINE ORANGE (YELLOW); GLUCOSE URINE NEGATIVE (NEGATIVE); KETONES URINE 3+ (NEGATIVE); LEUKOCYTE ESTERASE URINE 1+ (NEGATIVE); NITRITE URINE NEGATIVE (NEGATIVE); OCCULT BLOOD URINE 3+ (NEGATIVE); PH URINE 7.5 (4.5-8.0); PROTEIN URINE 2+ (NEGATIVE); SPECIFIC GRAVITY URINE 1.029 (1.005-1.030); UROBILINOGEN URINE 0.2 E.U./dL (0.2-1.0)
[2025-02-01 19:15] LABS: BACTERIA URINE 3+; RBC URINE 15-25 /hpf (0-2); SQUAMOUS EPITHELIAL CELL URINE RARE /lpf (RARE/1+)
[2025-02-01 19:16] LABS: *AMPHETAMINES SCREEN URINE NEGATIVE (NEGATIVE); *BARBITURATES SCREEN URINE NEGATIVE (NEGATIVE); *BENZODIAZEPINES SCREEN URINE NEGATIVE (NEGATIVE); *COCAINE SCREEN URINE NEGATIVE (NEGATIVE); CANNABINOID URINE SCREEN PRESUMPTIVE POSITIVE (NEGATIVE); METHADONE URINE SCREEN NEGATIVE (NEGATIVE); OPIATES URINE SCREEN NEGATIVE (NEGATIVE); PHENCYCLIDINE URINE SCREEN NEGATIVE (NEGATIVE)
[2025-02-01 19:17] LABS: ECSTASY MDMA SCREEN URINE NEGATIVE (NEGATIVE)
[2025-02-01] MEDS: SODIUM CHLORIDE 0.9% 1,000 ML IV ONE (21:11)
[2025-02-01] MEDS: ONDANSETRON HCL 4MG/2ML INJ IV ONE (21:11)
[2025-02-01] MEDS ORDERED: ONDANSETRON HCL 4MG/2ML INJ IV SCH (21:15)
[2025-02-01 21:16] VITALS: BP 147/90; PULSE 98; RESP 22; TEMP 37; O2SAT 100
== END 2025-02-01 22:19 | disposition short-term general hospital (02) ==
LOC: ER 14:06 → CANBEDREQ 18:40 → ER 22:19
DX: R11.2 Nausea with vomiting, unspecified (principal); R10.84 Generalized abdominal pain; R51.9 Headache, unspecified; Z88.5 Allergy status to narcotic agent; Z79.899 Other long term (current) drug therapy
CPT/HCPCS: 80076; 80305; 80048; 81003; 80320; 84703; 83690; 85025; 36415; 70450; 74176; 93005; 96361; 96374; 96375; 99285; J2060; J2405; J3480; J7030; G0480